=== PATIENT | female | born 1990 | race Caucasian/White ===

== ENCOUNTER 2019-06-16 11:18 | Observation (INO) | payer BC, OTHER, SELFPAY ==
[2019-06-16 11:21] VITALS: BP 158/115; PULSE 108; RESP 18; TEMP 36.8; O2SAT 99; BMI 54.9
--- NOTE | 2019-06-16 11:25 | ED_ITS ---
HPI - Skin/Abscess/Foreign Bdy General: Chief complaint: Skin/Abscess/Foreign Body Stated complaint: Abscess Time Seen by Provider: 06/16/19 11:22 History of Present Illness: HPI narrative: Patient sent by PCP for evaluation of abscess with cellulitis to bridge of nose. Had been lanced x 2 with needle decompression, no abscess to I&D identified today. No fever. Patient states she noticed a bump months ago but it became inflamed roughly 3-4 days ago. She l anced it with a lot of pus that came out, saw provider 2 days ago, lanced again, smaller amount returned, nothing to yady today. Here for CT after going to pcp today and concern for intracranial extension arose due to firmness at left medial canthus and worsening redness despite strict compliance and close follow up. 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 No neurologic deficits or visual changes. SHe has taken 3 doses of Bactrim so far. CO headache but no menigneal signs, no evidence of intracranial or cerebral abscess formation. Will obtain CT faical for evaluation of abscess depth and determination of admission here or need for transfer.. complaint: rash and abscess/boil Onset (ago): day(s) (4) Tetanus up to date: yes Location: face Severity: moderate Severity scale (1-10): 6 Quality: dull Pain Consistency: constant Relieving factors: none Exacerbating factors: none Associated symptoms: Deny chills, fever(s), nausea or vomiting Treatments prior to arrival: antibiotic (bactrim ds started yesterday 3 doses total) Review of Systems Const: Denies: fever, chills, change in appetite or malaise Eyes: Denies: change in vision, blurry vision, eye discharge or eye redness ENMT: Denies: throat pain, uvular edema, painful swallowing, mouth pain, dental pain, nasal congestion or facial/sinus pain Card: Denies: chest pain, irregular heart rhythm, swelling of feet/ankles, shortness of breath on exertion, shortness of breath when lying down or leg pain with exertion Resp: Denies: shortness of breath, productive cough, wheezing or coughing up blood GI: Denies: abdominal pain, nausea, vomiting, diarrhea, constipation or fecal incontinence : Denies: flank pain, difficulty urinating, painful urination, urinary sandi quency, urinary urgency or urinary hesitancy Musc: Denies: neck pain, back pain, extremity pain or extremity swelling Skin/Breast: Denies: itching, yellow skin or dry skin Neuro: Denies: numbness in extremities, weakness in extremities, changes in sensation, lack of coordination or difficulty walking Psych: Denies: anxiety, depression, mood swings, panic attacks, sleeping less, suicidal ideation or homicidal ideation Endo: Denies: excessive urination, excessive thirst or tired all the time Willis/Lymph: Denies: easy bruising, petechiae or enlarged lymph nodes All/Imm: Denies: hives, throat swelling, facial swelling, acute wheezing or seasonal allergies PFSH ED PFSH: Statuses (acute, chronic, etc) shown below reflect problem list status as previously entered and may not be historically accurate Social History Smoking and tobacco status: current every day smoker Physical Exam Const: COMMON NORMALS: no apparent distress, oriented x3, no limitations, healthy appearing, alert and well nourished GENERAL APPEARANCE: cooperative, comfortable, well kempt and well developed ORIENTATION/CONSCIOUSNESS: Yes awake, Yes oriented to person, Yes oriented to place and Yes oriented to time HENMT: COMMON NORMALS: normocephalic, head/scalp atraumatic, hearing grossly normal bilaterally, external ears normal, EAC's normal, TM's normal bilaterally, external nose normal ( pimple to bridge of nose with surrounding edema and erythema, no fluctuan), nasal mucous membranes and turbinates normal, moist oral mucous membranes, oropharynx normal, dentition normal and gingiva normal HEAD & SCALP: normal to inspection, normocephalic and atraumatic FACE & SINUS: facial edema (forehead and bilateral eyes) and facial tenderness (bridge of nose, medial canthus left eye) NOSE: external nose normal ( pimple to bridge of nose with surrounding edema and erythema, no fluctuan) and nasal mucous membranes and turbinates normal EXTERNAL EAR: Yes external ears normal EXTERNAL AUDITORY CANAL: EAC's normal TYMPANIC MEMBRANE: TM's normal bilaterally MOUTH: oral and palatal mucosa normal, lip normal and tongue normal THROAT: no uvular edema Eye: COMMON NORMALS: PERRL, EOMs intact bilaterally, conjunctivae normal, no scleral icterus and normal visual piedra by confrontation GENERAL EYE: normal appearance of both eyes and normal light reflex VISUAL ACUITY: Yes acuity normal ALIGNMENT: Yes alignment normal PERIORBITAL: periorbital findings normal EYELID: eyelid abnormal (swelling, erythema) right upper eyelid and left upper eyelid CONJUNCTIVA: Yes conjunctivae normal SCLERA: sclerae normal PUPIL: Yes PERRL and Yes accommodation reflex normal DIRECT OPHTHALMOSCOPY: Yes normal light reflex Neck/C-Spine: COMMON NORMALS: full ROM, no lymphadenopathy, supple, no meningeal signs and no JVD GENERAL: Yes normal visual inspection CAROTIDS: Yes normal carotid upstroke CERVICAL SPINE: Yes cervical ROM normal Lymph: LYMPHATIC: no lymphadenopathy noted Chest: COMMONS NORMALS: inspection of chest normal CHEST: Yes symmetrical chest wall rise Resp: COMMON NORMALS: normal respiratory effort, no retractions, no use of accessory muscles and clear to auscultation bilaterally EFFORT & INSPECTION: Yes able to speak in complete sentences and Yes symmetric chest movement AUSCULTATION: clear to auscultation bilaterally Cardio: COMMON NORMALS: no JVD, regular rate, regular rhythm, S1 normal heart sound, S2 normal heart sound, no murmurs and peripheral pulses 2+ throughout RATE: regular rate RHYTHM: regular rhythm HEART SOUNDS: S1 normal and S2 normal PERIPHERAL PULSES: pulses 2+ throughout GI: COMMON NORMALS: normal to inspection, nondistended, normoactive bowel sounds and non-tender : COMMON NORMALS: Yes no CVA tenderness BLADDER/KIDNEY EXAM: Yes no CVA tenderness Back/Pelvis: COMMON NORMALS: no CVA tenderness, thoracic and lumbar spine normal to inspection, no thoracic nor lumbar tenderness and thoraco-lumbar ROM normal Extremity: COMMON NORMALS: normal to inspection, full ROM, normal capillary refill, no calf tenderness and no pedal edema Neuro: COMMON NORMALS: oriented x3, CN's II-XII intact bilaterally, moves all extremities, no focal motor deficits, no sensory deficits noted and gait normal SENSORIUM/ORIENTATION: Yes alert, Yes oriented to person, Yes oriented to place and Yes oriented to time MENINGEAL SIGNS: Yes no meningeal signs SPEECH: speech normal GAIT: Yes normal gait MOTOR EXAM: strength 5/5 throughout, no pronator drift and no tremor noted Psych: COMMON NORMALS: mental status grossly normal, thought process normal, cooperative, affect normal, speech normal and activity/motor behavior normal APPEARANCE: Yes well kempt SPEECH: Yes normal speech THOUGHT PROCESS: normal thought process THOUGHT CONTENT: Yes normal thought content INSIGHT: insight good Skin: COMMON NORMALS: no rashes or lesions noted, no wounds, skin turgor normal and no jaundice GENERAL SKIN EXAM: no rashes or lesions noted and turgor normal Course ED course: patient sent here by PCP who has started her on Bactrim to rule out intracranial abscess. CT negative for worsening intracranial or deep tissue lesion. Discussed with Dr Duval who agrees to admit for inpatient IV antibiotic therapy Vital Signs: Vital signs: Vital Signs Temperature 98.3 F 06/16/19 11:21 Pulse Rate 112 H 06/16/19 11:26 Respiratory Rate 18 06/16/19 11:26 Blood Pressure 158/115 06/16/19 11:21 Pulse Oximetry 98 06/16/19 11:26 MDM - Skin/Abscess/Foreign Bdy Differential Diagnosis: Skin/Abscess Differential Diagnosis: Likely abscess of skin or subcutaneous tissue, cellulitis and insect bites Discharge Plan Discharge Patient Disposition: Admitted As Inpatient Clinical Impression: Abscess of skin or subcutaneous tissue Qualifiers: Site of cutaneous abscess: face Qualified Code(s): L02.01 - Cutaneous abscess of face Cellulitis Qualifiers: Site of cellulitis: face Qualified Code(s): L03.211 - Cellulitis of face Condition: Stable Coding Level of Care Code ED Care Transitions Manager for Lydia Noyola Exam Problem Focused
[2019-06-16 11:26] VITALS: PULSE 112; RESP 18; O2SAT 98
--- NOTE | 2019-06-16 11:32 | CT_ITS ---
WS: [id number] CT scan of the maxillofacial region. Additional two-dimensional coronal and sagittal reconstruction w as performed. 06/16/2019 Clinical Data: periorbital abscess Comparison: None. DLP: 743.[address] scans at [facility] use at least one of these dose optimization techniques: automat ed exposure control; mA and/or kV adjustment per patient size (includes targeted exams where dose is matched to clinical indication); or iterative reconstruction. Findings: The facial bones and nasal bones are unremarkable. No bone destruction or erosion is seen. The paranasal sinuses show no mucoperiosteal thickening or air-fluid levels. The orbits and orbital contents are normal. No periorbital or intraorbital abscess is seen. The masto id air cells, internal auditory canals, and sella turcica are not remarkable. The carotid arteries show normal enhancement and divide normally into the internal and external carot id arteries. The intracerebral circulation is partly seen and no aneurysms or abnormalities. The temporal mandibular joints appear to be normal. The zygomatic arches and nasal bones are normal. The floor the mouth and parapharyngeal regions demonstrate no abnormalities. The salivary glands appe ar to be normal. CT/CT facial bones w con [id number] Impression: Negative CT scan of the maxilla facial region.
--- NOTE | 2019-06-16 12:02 | PC.NURSE ---
Redness noted to the center and the left side of the upper portion of her face with c/o itching.
[2019-06-16] MEDS: iohexol 300 mg/mL 100 mL Btl IV (12:57)
[2019-06-16] MEDS: clindamycin 900 MG/50 ML PREMIX 100 MG IV (13:37)
[2019-06-16] MEDS: fentaNYL 50 mcg/mL INJ 2mL IVP (13:37)
[2019-06-16] MEDS: sodium chloride 0.9% 1,000 ML 999 ML IV (13:37)
[2019-06-16 14:00] VITALS: PULSE 75; RESP 16; O2SAT 99
[2019-06-16] MEDS: ketorolac 30 mg/mL INJ IVP ×2 (15:28→21:46)
--- NOTE | 2019-06-16 16:32 | P.HP_ITS ---
Providers/Chief Complaint Admitting Physician: Lashonda Duval DO Primary Care Provider: Patrick Evans DO Chief Complaint: Abscess History of Present Illness Lakeisha Chu is a 28 year old female that presented to the emergency department today for facial swelling and redness. She reported that the facial swelling started in the center of her forehead before Adelita, she stated that 3 days ago it became firm and painful to the touch and appeared similar to boils that she has had in the past. She stated that she tried to drain this area on her own at home and had a large amount of pus that she was able to express. She reported that 2 days ago she went to her primary care provider due to having increasing redness and was given a prescription for Bactrim, had more purulent material drained at that time. Return to the providers office today due to worsening swelling and was then sent to the ER for further evaluation. She denies any fevers or chills at home. She reports over the past couple of weeks she has been sick off and on with bronchitis and flulike symptoms that have now all resolved prior to this event. She reports taking a total of 3 doses of the Bactrim that she was prescribed. Patient was seen and evaluated in the emergency department due to concern for facial cellulitis she was admitted for further evaluation and treatment. She was given IV clindamycin in the emergency department, patient reports that her symptoms have improved since this morning. Review of Systems Const: Denies: fever or chills Eyes: Denies: change in vision ENMT: Reports: facial/sinus pain (Reports facial pain, no sinus drainage or tenderness); Denies: painful swallowing, dental pain or nasal congestion Card: Denies: chest pain, palpitations or edema Resp: Denies: shortness of breath, productive cough or coughing up blood GI: Denies: abdominal pain, nausea, vomiting, diarrhea, constipation or blood in stool : Denies: painful urination or blood in urine Musc: Denies: extremity pain or muscle cramps Skin/Breast: Reports: redness (Over the eyes and forehead) and sores (Forehead) Neuro: Denies: headache or dizziness Psych: Denies: anxiety or depression Endo: Denies: excessive urination or hot flashes Willis/Lymph: Denies: easy bruising or easy bleeding Medications/Allergies Home Medications Medication Instructions Recorded Confirmed Last Taken Type Lactobacillus acidophilus 10 mg PO DAILY 06/16/19 06/16/19 06/16/19 History [Acidophilus] cetirizine 10 mg PO DAILY 06/16/19 06/16/19 06/16/19 History drospirenone-ethinyl estradiol 1 tab PO DAILY 06/16/19 06/16/19 06/16/19 History [ZAINAB (28)] fluoxetine 20 mg PO DAILY 06/16/19 06/16/19 06/16/19 History montelukast 10 mg PO DAILY 06/16/19 06/16/19 06/16/19 History mupirocin 1 applic TOPICAL TID 06/16/19 06/16/19 06/16/19 History omeprazole 20 mg PO DAILY 06/16/19 06/16/19 06/16/19 History sulfamethoxazole-trimethoprim 2 tab PO BID 06/16/19 06/16/19 06/16/19 History [Bactrim DS] Allergies Allergy/AdvReac Type Severity Reaction Status Date / Time No Known Allergies Allergy Verified 06/16/19 11:26 PFSH Acute PFSH: Statuses (acute, chronic, etc) shown below reflect problem list status as previously entered and may not be historically accurate Medical History (Updated 06/16/19 @ 16:38 by Lashonda Duval DO) History of hidradenitis suppurativa (Acute) Seasonal allergies (Acute) Surgical History (Updated 06/16/19 @ 16:38 by Lashonda Duval DO) History of tonsillectomy (Acute) Family History (Updated 06/16/19 @ 16:42 by Lashonda Duval DO) Mother Hypertension Cancer History of cervical cancer Father Hypertension Grandfather Cancer Maternal grandfather, colon cancer Grandfather Bone marrow disease Paternal grandfather, history of unknown bone marrow disorder Social History (Updated 06/16/19 @ 16:42 by Lashonda Duval DO) Smoking and tobacco status: current every day smoker Alcohol intake: never Substance/Drug Use: never Female Reporductive History: Date of last menstrual period: 06/16/19 Vitals/I&O/Wt Last Vital Signs Temp 98.3 F 06/16/19 11:21 Pulse 75 06/16/19 14:00 Resp 16 06/16/19 14:00 BP 158/115 06/16/19 11:21 Pulse Ox 99 06/16/19 14:00 06/16/19 06/16/19 06/16/19 06:59 14:59 22:59 Intake Total 50 / 50 1000 / 1050 Balance 50 / 50 1000 / 1050 Weight last 48 hrs Weight 149.685 kg Physical Exam Const: COMMON NORMALS: oriented x3 and alert GENERAL APPEARANCE: cooperative ORIENTATION/CONSCIOUSNESS: Yes awake, Yes oriented to person, Yes oriented to place and Yes oriented to time HENMT: COMMON NORMALS: normocephalic, external ears normal, EAC's normal, TM's normal bilaterally, external nose normal, nasal mucous membranes and turbinates normal, moist oral mucous membranes and oropharynx normal HEAD & SCALP: other (Small area over the center of the forehead status post I&D, no palpable abscess or drainage. Patient has erythema surrounding this area and over the left eye) FACE & SINUS: sinuses nontender NOSE: external nose normal (piercing on the R nostril), nares normal and no nasal discharge MOUTH: oral and palatal mucosa normal and tongue normal THROAT: posterior oropharynx normal Eye: COMMON NORMALS: PERRL and EOMs intact bilaterally PUPIL: Yes PERRL Neck/C-Spine: COMMON NORMALS: no lymphadenopathy and supple GENERAL: Yes normal visual inspection Resp: COMMON NORMALS: normal respiratory effort and clear to auscultation bilaterally EFFORT & INSPECTION: Yes able to speak in complete sentences AUSCULTATION: clear to auscultation bilaterally, no rhonchi and no wheezes Cardio: COMMON NORMALS: regular rate, regular rhythm and no murmurs RATE: regular rate RHYTHM: regular rhythm GI: COMMON NORMALS: soft to palpation and non-tender INSPECTION: No abdominal distension AUSCULTATION: Yes normoactive bowel sounds PALPATION: Yes soft Extremity: COMMON NORMALS: no clubbing, cyanosis or edema and no calf tenderness Neuro: COMMON NORMALS: oriented x3, CN's II-XII intact bilaterally, moves all extremities and no focal motor deficits SENSORIUM/ORIENTATION: Yes alert, Yes oriented to person, Yes oriented to place and Yes oriented to time SPEECH: speech normal Psych: COMMON NORMALS: mental status grossly normal and cooperative Skin: COMMON NORMALS: no rashes or lesions noted GENERAL SKIN EXAM: no rashes or lesions noted Data Other CT: Radiologist's impression: Face CT: The facial bones and nasal bones are unremarkable. No bone destruction or erosion is seen. The paranasal sinuses show no mucoperiosteal thickening or air-fluid levels. The orbits and orbital contents are normal. No periorbital or intraorbital abscess is seen. The mastoid air cells, internal auditory canals, and sella turcica are not remarkable. The carotid arteries show normal enhancement and divide normally into the internal and external carotid arteries. The intracerebral circulation is partly seen and no aneurysms or abnormalities. The temporal mandibular joints appear to be normal. The zygomatic arches and nasal bones are normal. The floor the mouth and parapharyngeal regions demonstrate no abnormalities. The salivary glands appear to be normal. A&P Assessment and plan (1) Cellulitis: Facial cellulitis with recent incision and drainage of abscess in the forehead. Had been on Bactrim DS, 2 tabs twice daily in the outpatient setting, had taken 3 total doses with minimal improvement therefore was sent to the ER for further evaluation. Had CT scan as noted above which did not show any evidence of periorbital cellulitis, no identifiable abscess. Extraocular muscles intact, vision within normal limits, no appreciable sinus tenderness or concern for acute sinusitis. Given IV clindamycin in the ED, will continue at this time and discontinue Bactrim. Observation placement at this time Status: Acute Qualifiers: Site of cellulitis: face Qualified Code(s): L03.211 - Cellulitis of face Code(s): L03.90 - Cellulitis, unspecified (2) Abscess of skin or subcutaneous tissue: Abscess of the forehead status post I&D 3 days ago, no identifiable abscess at this time Status: Acute Qualifiers: Site of cutaneous abscess: face Qualified Code(s): L02.01 - Cutaneous abscess of face Code(s): L02.91 - Cutaneous abscess, unspecified Additional A&P Information Tobacco abuse: Strongly encourage cessation Diet: Regular diet DVT prophylaxis: Ambulation, low risk CODE STATUS: Full code Attestations Medical Necessity Statement*: Observation for facial cellulitis, expected stay less than 2 midnights Coding Level of Care Code 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
[2019-06-16 17:14] VITALS: BP 149/85; PULSE 102; RESP 16; O2SAT 98
[2019-06-16 17:59] VITALS: BP 149/84; PULSE 88; RESP 18; TEMP 36.8; O2SAT 97
[2019-06-16] MEDS: acetaminophen 325 mg Tablet 650 MG PO (19:42)
[2019-06-16 21:00] VITALS: BP 131/71; PULSE 84; RESP 19; TEMP 36.8
[2019-06-16] MEDS: clindamycin 600 MG/50 ML PREMIX 100 MG IV (21:45)
[2019-06-16] MEDS: mupirocin oint 22 gm 1 APPLIC TOPICAL (21:45)
[2019-06-17] VITALS: BP 104/67; PULSE 97; RESP 18; TEMP 36.9; O2SAT 98
[2019-06-17 05:29] VITALS: BP 136/74; PULSE 66; RESP 17; TEMP 36.6; O2SAT 98
[2019-06-17 06:00] VITALS: BMI 60.9
[2019-06-17 06:03] LABS: Basophils % 0.5 %; Eosinophils # 0.3 10^3/uL (0.0-0.8); Eosinophils % 2.9 %; Hematocrit 36.6 % (37.0-47.0); Hemoglobin 11.4 g/dL (11.5-15.3); Lymphocytes # 3.4 10^3/uL (0.8-4.8); Lymphocytes % 38.7 %; Mean Corpuscular HGB Conc 31.1 g/dL (30.0-36.0); Mean Corpuscular Hemoglobin 25.9 pg (28.0-34.0); Mean Corpuscular Volume 83.2 fL (81-99); Mean Platelet Volume 9.3 fL (7.4-10.4); Monocytes # 0.6 10^3/uL (0.2-0.9); Monocytes % 7.1 %; Neutrophils # 4.4 10^3/uL (1.8-7.7); Neutrophils % 49.9 %; Nucleated Red Blood Cells % 0 %; Platelet Count 286 10^3/cmm (130-400); Red Cell Distribution Width 13.1 % (12.1-15.1); White Blood Count 8.8 10^3/uL (4.0-10.0)
[2019-06-17] MEDS: ketorolac 30 mg/mL INJ IVP (06:27)
[2019-06-17] MEDS: clindamycin 600 MG/50 ML PREMIX 100 MG IV (06:27)
[2019-06-17 08:00] VITALS: BP 134/80; PULSE 76; RESP 18; TEMP 36.5; O2SAT 98
[2019-06-17] MEDS: pantoprazole DR 40 mg Tablet PO (08:21)
--- NOTE | 2019-06-17 09:40 | P.DS_ITS ---
Discharge Providers Date of Admission: 06/16/19 16:31 Date of Discharge: 06/17/19 Attending Provider at Admission: Lashonda Duval MD Attending Provider at Discharge: Benigno Rincon Primary Care Provider: Patrick Evans DO Diagnoses at Discharge Discharge Diagnosis (1) Cellulitis: Status: Acute Qualifiers: Site of cellulitis: face Qualified Code(s): L03.211 - Cellulitis of face (2) Abscess of skin or subcutaneous tissue: Status: Acute Qualifiers: Site of cutaneous abscess: face Qualified Code(s): L02.01 - Cutaneous abscess of face Reason for Visit Reason for Visit: Reason For Visit: Abscess Hospital Course Hospital Course: 28-year-old lady with history of hidradenitis suppurativa, seasonal allergies was placed in observation after persistent cellulitis of the glabella after drainage of abscess in the same area 3 days ago, and with lack of improvement after starting Bactrim prescribed by her primary care provider [address] without sign of any residual abscess, no periorbital or intraorbital abscess. She was started on IV clindamycin. This morning noting improvement in symptoms, still having some discomfort, but without severe pain, no drainage, and denies any chills. She has been afebrile, without leukocytosis, tachycardia or other signs of sepsis. Since she has been improving she is discharged on 10 days of oral clindamycin 450 mg 4 times daily with follow-up with her primary care provider in office. Physical Exam Const: COMMON NORMALS: no apparent distress and oriented x3 NUTRITIONAL APPEARANCE: overweight HENMT: COMMON NORMALS: oropharynx normal FACE & SINUS: facial erythema (She reports chronically reddish/blotchy complexion. On exam of the glabella there is only mild erythema, with a noted dimple at the site of prior abscess, without any drainage.) Neck/C-Spine: COMMON NORMALS: no JVD Resp: COMMON NORMALS: normal respiratory effort and clear to auscultation bilaterally AUSCULTATION: clear to auscultation bilaterally Cardio: COMMON NORMALS: no JVD, regular rhythm, S1 normal heart sound, S2 normal heart sound and no murmurs RHYTHM: regular rhythm HEART SOUNDS: S1 normal and S2 normal GI: COMMON NORMALS: normal to inspection, nondistended, normoactive bowel sounds, soft to palpation and non-tender PALPATION: Yes soft Extremity: COMMON NORMALS: no joint enlargement and no pedal edema Neuro: COMMON NORMALS: oriented x3 and moves all extremities Skin: COMMON NORMALS: no rashes or lesions noted GENERAL SKIN EXAM: no rashes or lesions noted Discharge Data Data Completed and Pending: Completed Studies During Hospitalization Category Date Time Status CT facial bones w con [id number] Stat Cat Scan 06/16/19 11:32 Completed Labs from last 24 hours 06/17/19 05:54 WBC 8.8 RBC 4.40 Hgb 11.4 L Hct 36.6 L MCV 83.2 MCH 25.9 L MCHC 31.1 RDW 13.1 Plt Count 286 MPV 9.3 Neut % (Auto) 49.9 Lymph % (Auto) 38.7 [place] % (Auto) 7.1 Eos % (Auto) 2.9 Baso % (Auto) 0.5 Neut # (Auto) 4.4 Lymph # (Auto) 3.4 [place] # (Auto) 0.6 Eos # (Auto) 0.3 Baso # (Auto) 0.0 Nucleated RBC % (a uto) 0 Nucleated RBCs # 0.0 Vitals: Last Vital Signs Temp 97.7 F 06/17/19 08:00 Pulse 76 06/17/19 08:00 Resp 18 06/17/19 08:00 BP 134/80 06/17/19 08:00 Pulse Ox 98 06/17/19 08:00 Discharge Plan Discharge Patient Disposition: Home, Self-Care Condition: Stable Prescriptions: New [id number] [Fioricet] 50-300-40 mg capsule 1 cap PO Q8H PRN (Reason: pain) Qty: 1 RF: 0 clindamycin HCl 150 mg capsule 150 mg PO Q6H 10 Days Qty: 40 RF: 0 naproxen sodium [Anaprox DS] 550 mg tablet 550 mg PO BID PRN (Reason: pain) Qty: 14 RF: 0 clindamycin HCl 300 mg capsule 300 mg PO Q6H 10 Days Qty: 40 RF: 0 Continued cetirizine 10 mg Tablet 10 mg PO DAILY RF: 0 omeprazole 20 mg Capsule,Delayed Release(Dr/Ec) 20 mg PO DAILY RF: 0 montelukast 10 mg Tablet 10 mg PO DAILY RF: 0 mupirocin 2 % Ointment 1 applic TOPICAL TID RF: 0 Acidophilus Capsule 10 mg PO DAILY RF: 0 fluoxetine 20 mg Capsule 20 mg PO DAILY RF: 0 ZAINAB (28) 3-0.02 mg Tablet 1 tab PO DAILY RF: 0 Discontinued Bactrim DS 800-160 mg Tablet 2 tab PO BID RF: 0 Discharge Orders: Discharge Order (Routine); Ordered 06/17/19 Ordered By: Benigno Rincon Referrals: Patrick Evans DO [Primary Care Provider] - 4-7 days Patient Instructions: Periorbital Cellulitis Activity Restrictions/Additional Instructions: If you experience worsening erythema again, swelling, pain, return of drainage, high fever, or other abnormal symptoms please seek medical attention without de lay. 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
[2019-06-17 10:14] VITALS: BP 134/80; PULSE 76; RESP 18; TEMP 36.5; O2SAT 98
--- NOTE | 2019-06-17 10:53 | PC.NURSE ---
Discharge Summary Patient was discharged home with self care. vital signs within normal limits. Iv discontinued. prescriptions sent to her preferred pharmacy. discharge instructions gone over with patient and verbalized understanding. follow up appointments scheduled.
== END 2019-06-17 10:50 | disposition home or self-care (01) ==
LOC: ER 15:19 → MEDSURG 17:12
PROVIDERS: Admitting Provider Family Medicine; Emergency Provider Emergency Medicine; Family Provider Family Medicine; PCP Family Medicine; Visit Provider Internal Medicine
DX: L02.91 Cutaneous abscess, unspecified (principal); L03.211 Cellulitis of face; Z82.49 Family history of ischemic heart disease and other diseases of the circulatory system
CPT/HCPCS: 12345; 36415; 70487; 85025; 96365; 96374; 96375; 99282; 99285; G0378; J1885; J3010; J3490; J7030; Q9967

== ENCOUNTER 2021-02-14 15:21 | Emergency (ER) | payer SELFPAY ==
[2021-02-14] VITALS (12 sets, daily range): BP systolic 110–136; BP diastolic 54–83; PULSE 67; RESP 16–24; TEMP 36.7; O2SAT 95–100; BMI 38.2
--- NOTE | 2021-02-14 15:43 | W.ED.ABDPA2 ---
HPI - Abdominal Pain General: Chief Complaint: Abdominal Pain Stated Complaint: CHEST PAIN/TROUBLE BREATHING Time Seen by Provider: 02/14/21 15:43 History of Present Illness: HPI narrative: Ms. Chu is a 30-year-old lady with significant surgical history of gastric bypass who presents emergency department due to epigastric abdominal pain. Symptom onset was subacute approximately 2 to 3 hours ago. There was mild associated nausea but no vomiting. The symptoms started without specific provoking factor. She describes sharp radiation through to the back. Mild associated shortness of breath just due to abdominal discomfort. No previous infectious symptoms. Overall the course of symptoms has remained about the same. The intensity is moderate to severe. Her symptoms are worse with movement but do not go with rest. No other specific exacerbating or relieving factors identified. She is currently on her menstrual period and has a female partner who is in the room with her. Related Data: Date of Last Menstrual Period: 06/16/19 Review of Systems General: Reports: 10 or more systems reviewed and unremarkable except in HPI and below PFSH ED PFSH: Medical History History of hidradenitis suppurativa Seasonal allergies Surgical History History of tonsillectomy Family History Mother Hypertension Cancer History of cervical cancer Father Hypertension Grandfather Cancer Maternal grandfather, colon cancer Grandfather Bone marrow disease Paternal grandfather, history of unknown bone marrow disorder Social History Smoking and tobacco status: current every day smoker Alcohol intake: never Female Reproductive History: Date of last menstrual period: 06/16/19 Physical Exam Narrative: EXAM NARRATIVE: GENERAL/CONSTITUTIONAL - well-appearing. No acute distress. Mildly uncomfortable due to pain Eyes - PERRL, no conjunctival injection ENMT - Atraumatic external nose and ears. Moist mucous membranes NECK - supple. trachea midline CARDIOVASCULAR - regular rate and rhythm. Peripheral pulses 2+ and equal RESPIRATORY -clear to auscultation bilaterally. No retractions or accessory muscle use. ABDOMEN/GI - tenderness palpation in the epigastric region. Nondistended. No tenderness to percussion or evidence of peritonitis MSK - Extremities without obvious deformity or tenderness to palpation SKIN - Warm, Dry NEURO - alert and appropriately oriented. strength and sensation intact. Moves all extremities equally. PSYCH - Appropriate mood and affect Course ED course: - Patient was seen and evaluated by me at bedside - Patient placed on cardiac monitors, IV access obtained - Initial evaluation notable for no acute distress, nontoxic appearance. Discomfort due to pain. Abdominal exam as noted above -Symptom treatment ordered - Labs notable for leukocytosis, mild elevated AST on metabolic panel. Patient denies history of alcohol use/abuse. Urinalysis not concerning for urinary tract infection given squamous epithelial contamination. - Imaging notable for no acute finding to explain the patient's symptoms - Upon serial reexamination after treatment the patient was improved with resolution of pain - Based on patient history, evaluation, labs, and imaging as interpreted the most likely cause of the patient's condition is unclear - The results of ED evaluation were discussed with the patient including prescriptions and/or symptomatic cares (if applicable) including appropriate and responsible use, followup plan, and return precautions. The patient verbalized understanding and felt safe for discharge. - Patient discharged in satisfactory condition. Vital Signs: Vital signs: Vital Signs Temperature 98.1 F 02/14/21 15:36 Pulse Rate 67 02/14/21 15:36 Respiratory Rate 16 02/14/21 17:18 Blood Pressure 110/55 02/14/21 18:00 Pulse Oximetry 99 02/14/21 18:00 MDM - Abdominal Pain Medical Records: Attestation: I reviewed the patient's medical records. Lab Data: Attestation: I reviewed the patient's lab results. Labs: Lab Results 02/14/21 02/14/21 02/14/21 Range/Units 16:15 16:15 16:15 WBC 14.7 H (4.0-10.0) 10^3/ uL RBC 4.78 (4.1-5.3) 10^6/u L Hgb 13.1 (11.5-15.3) g/dL Hct 40.7 (37.0-47.0) % MCV 85.1 (81-99) fl MCH 27.4 L (28.0-34.0) pg MCHC 32.2 (30.0-36.0) g/dL RDW 12.7 (12.1-15.1) % Plt Count 289 (130-400) 10^3/c mm MPV 9.8 (7.4-10.4) fL Neut % (Auto) 84.4 % Lymph % (Auto) 10.1 % Lea % (Auto) 4.8 % Eos % (Auto) 0.1 % Baso % (Auto) 0.3 % Neut # (Auto) 12.42 H (1.8-7.7) 10^3/u L Lymph # (Auto) 1.5 (0.8-4.8) 10^3/u L Lea # (Auto) 0.7 (0.2-0.9) 10^3/u L Eos # (Auto) 0.0 (0.0-0.8) 10^3/u L Baso # (Auto) 0.0 (0.0-0.1) 10^3/u L Nucleated RBC % (a uto) 0 % Nucleated RBCs # 0.0 /100WBC Sodium 139 (136-145) mmol/L Potassium 4.2 (3.5-5.1) mmol/L Chloride 104 (98-107) mmol/L Carbon Dioxide 21 L (22-29) mmol/L Anion Gap 18.2 (5-19) BUN 11 (6-20) mg/dL Creatinine 0.7 (0.5-0.9) mg/dL GFR Calculation 98.3 (90-130) mL/min Glucose 108 (65-115) mg/dL Calculated Osmolal ity 288 (285-295) mOsm/k g Calcium 9.0 (8.5-10.5) mg/dL Total Bilirubin 0.4 (0.15-1.2) mg/dL AST 72 H (0-32) U/L ALT 28 (0-33) U/L Alkaline Phosphata se 116 H (35-105) IU/L Troponin T Baselin e 6 (0-10) ng/L Troponin T 120 Min mary[place] ig[place] (0-10) ng/L Delta Troponin T (0-10) ABS# Total Protein 6.4 L (6.6-8.7) g/dL Albumin 4.0 (3.5-5.2) g/dL Globulin 2.4 (1.3-4.6) g/dL Lipase 22 (13-60) U/L Urine Color (Yellow) Urine Appearance (CLEAR) Urine pH (5-7) Ur Specific Gravit y (1.005-1.030) Urine Protein (Negative) Urine Glucose (UA) (Normal) Urine Ketones (Negative) Urine Blood (Negative) Urine Nitrate (Negative) Urine Bilirubin (Negative) Urine Urobilinogen (Negative) mg/dL Ur Leukocyte Aura ase (Negative) Urine RBC (0-2) /hpf Urine WBC (0-5) /hpf Ur Squamous Epith Cells (0-5) /hpf Amorphous Sediment Urine Bacteria (NONE) /hpf Urine Mucus /hpf 02/14/21 02/14/21 Range/Units 16:30 17:55 WBC (4.0-10.0) 10^3/ uL RBC (4.1-5.3) 10^6/u L Hgb (11.5-15.3) g/dL Hct (37.0-47.0) % MCV (81-99) fl MCH (28.0-34.0) pg MCHC (30.0-36.0) g/dL RDW (12.1-15.1) % Plt Count (130-400) 10^3/c mm MPV (7.4-10.4) fL Neut % (Auto) % Lymph % (Auto) % Lea % (Auto) % Eos % (Auto) % Baso % (Auto) % Neut # (Auto) (1.8-7.7) 10^3/u L Lymph # (Auto) (0.8-4.8) 10^3/u L Lea # (Auto) (0.2-0.9) 10^3/u L Eos # (Auto) (0.0-0.8) 10^3/u L Baso # (Auto) (0.0-0.1) 10^3/u L Nucleated RBC % (a uto) % Nucleated RBCs # /100WBC Sodium (136-145) mmol/L Potassium (3.5-5.1) mmol/L Chloride (98-107) mmol/L Carbon Dioxide (22-29) mmol/L Anion Gap (5-19) BUN (6-20) mg/dL Creatinine (0.5-0.9) mg/dL GFR Calculation (90-130) mL/min Glucose (65-115) mg/dL Calculated Osmolal ity (285-295) mOsm/k g Calcium (8.5-10.5) mg/dL Total Bilirubin (0.15-1.2) mg/dL AST (0-32) U/L ALT (0-33) U/L Alkaline Phosphata se (35-105) IU/L Troponin T Baselin e (0-10) ng/L Troponin T 120 Min [place]ary[place] 6.00 (0-10) ng/L Delta Troponin T 0 (0-10) ABS# Total Protein (6.6-8.7) g/dL Albumin (3.5-5.2) g/dL Globulin (1.3-4.6) g/dL Lipase (13-60) U/L Urine Color Dark yellow (Yellow) Urine Appearance Hazy A (CLEAR) Urine pH 6.5 (5-7) Ur Specific Gravit y 1.010 (1.005-1.030) Urine Protein Neg (Negative) Urine Glucose (UA) Norm (Normal) Urine Ketones 1+ H (Negative) Urine Blood 3+ H (Negative) Urine Nitrate Negative (Negative) Urine Bilirubin Neg (Negative) Urine Urobilinogen 1 H (Negative) mg/dL Ur Leukocyte Aura ase Trace H (Negative) Urine RBC 0-4 H (0-2) /hpf Urine WBC 5-10 H (0-5) /hpf Ur Squamous Epith Cells 10-15 H (0-5) /hpf Amorphous Sediment Not Reportable Urine Bacteria 1+ H (NONE) /hpf Urine Mucus 1+ /hpf EKG Data ^: EKG 1: Attestation: I personally reviewed and interpreted this EKG as follows: EKG interpretation date: 02/12/21 EKG interpretation time: 15:38 Interpretation: Twelve-lead EKG shows a regular sinus rhythm at a rate of 65. UT interval 150, QRS duration 93, QTc 417. Normal axis. Interpretation: Sinus rhythm with nonspecific ST segment abnormalities. EKG 2: Attestation: I personally reviewed and interpreted this EKG as follows: EKG interpretation date: 02/14/21 EKG interpretation time: 16:28 Interpretation: Twelve-lead EKG shows a regular sinus rhythm at a rate of 60. UT interval 157, QRS duration 93, QTc 425. Normal axis. Interpretation sinus rhythm with nonspecific ST segment abnormality similar to prior Discharge Plan Discharge Patient Disposition: Home Clinical Impression: Abdominal pain Condition: Stable Prescriptions: No Action montelukast 10 mg tablet 10 mg PO DAILY Qty: 30 RF: 5 omeprazole 20 mg capsule,delayed release(DR/EC) 20 mg PO DAILY Qty: 30 RF: 5 fluticasone propionate 50 mcg/actuation spray,suspension 1 spray INTRANASAL DAILY PRN (Reason: Nasal Congestion) RF: 0 cetirizine 10 mg Tablet 10 mg PO DAILY RF: 0 mupirocin 2 % Ointment 1 applic TOPICAL TID RF: 0 Lactobacillus acidophilus [Acidophilus] Capsule 10 mg PO DAILY PRN (Reason: on abx) RF: 0 fluoxetine 20 mg Capsule 20 mg PO DAILY RF: 0 drospirenone-ethinyl estradiol [ZAINAB (28)] 3-0.02 mg Tablet 1 tab PO DAILY RF: 0 Discharge Orders: Discharge ED (Routine); Ordered 02/14/21 Ordered By: Reinaldo Cain Referrals: Sheridan Jennings FNP [Primary Care Provider] - Discharge Diet: Advance as tolerated and Clear Liquid Discharge Activity: Resume usual activity Patient Instructions: Abdominal Pain (ED) Activity Restrictions/Additional Instructions: Thank you for visiting the ED. You were seen and evaluated for abdominal pain. The exact cause of your pain is unclear. Please followup with your primary care provider. Please return for worsening symptoms or anything that you are concerned about and feel needs ED evaluation. Coding Level of Care Code ED Talent Management Specialist for Lydia Noyola
--- NOTE | 2021-02-14 15:54 | CTR_ITS ---
PROCEDURE INFORMATION: Exam: CT Abdomen And Pelvis With Contrast Exam date and time: 02/14/2021 3:54 PM Age: 30 years old Clinical indication: Abdominal pain; Epigastric; Prior surgery; Surgery type: Gastric bypass; Additional info: Epigastric pain, HX of gastric bypass TECHNIQUE: Imaging protocol: Computed tomography of the abdomen and pelvis with contrast. Total images: 253 Radiation optimization: All CT scans at this facility use at least one of these dose optimization techniques: automated exposure control; mA and/or kV adjustment per patient size (includes targeted exams where dose is matched to clinical indication); or iterative reconstruction. Contrast material: OMNI 300; Contrast volume: 95 ml; Contrast route: INTRAVENOUS (IV); COMPARISON: CR XR chest 1V portable [id number] 02/14/2021 4:05 PM RADIATION DOSE METRICS: Total DLP (mGy-cm): 1804.42 FINDINGS: Lungs: Limited assessment of the lung bases fails to reveal evidence for active cardiopulmonary process. Liver: No visible hepatic mass or cystic structure. Hepatomegaly. Gallbladder and bile ducts: Normal. No calcified stones. No ductal dilation. Pancreas: Pancreas is unremarkable. No visible pancreatic ductal ectasia. Spleen: Spleen unremarkable. Adrenal glands: Adrenal glands unremarkable. Kidneys and ureters: No hydronephrosis or perinephric fluid. No visible nephrolithiasis. Stomach and bowel: Status post gastroplasty. Assessment of the hollow viscus fails to reveal evidence of active or acute pathology. Nonobstructed bowel pattern. No visible acute diverticulitis. No visible adynamic or reactive ileus. Appendix: The appendix is visualized and appears noninflamed. Intraperitoneal space: No visible evidence of mesenteric lymphadenitis or active mesenteritis/panniculitis. No visible pneumoperitoneum or intraperitoneal ascites. Vasculature: The abdominal aorta is nonaneurysmal. Portal vein patent. Lymph nodes: No current visible evidence of active mesenteric or retroperitoneal lymphadenopathy. Urinary bladder: Urinary bladder unremarkable. Reproductive: Unremarkable as visualized. Bones/joints: No visible active or acute osseous pathology. Soft tissues: Obesity. CT/CT abdomen pelvis w con* [id number] IMPRESSION: Currently no visible evidence for acute abdominal or pelvic pathologic process. Radiation Dose CTDIVOL = (mGy): DLP = 1804.42 (mGy-cm)
--- NOTE | 2021-02-14 15:54 | XR_ITS ---
WS: [id number] XR chest 1V portable [id number] REASON FOR EXAM: epigastric/chest pain FINDINGS: The heart and mediastinum are within normal limits. Calcified granulomatous disease in both hemithoraces. No active pulmonary parenchymal or pleural disease. Bony thorax is intact. XR/XR chest 1V portable [id number] IMPRESSION: No acute chest abnormality.
--- NOTE | 2021-02-14 15:54 | ECG_ITS ---
[facility] Test Date: 2021-02-14 Pat Name: Lakeisha Chu Department: Room: Gender: Female Press Offbearer: : 1990 Requested By: Reinaldo Cain Order Number: [id number] Stock MD: Vandana Casarez M.D. Measurements Intervals [place] Rate: 60 P: 29 IN: 157 QRS: 12 QRSD: 93 T: 18 QT: 423 QTc: 426 Interpretive Statements SINUS RHYTHM WITH SINUS ARRHYTHMIA No previous ECG available for comparison Electronically Signed On 02-15-2021 8:38:47 CDT by Vandana Casarez M.D. [email or web address]
[2021-02-14 16:25] LABS: Basophils % 0.3 %; Eosinophils % 0.1 %; Hematocrit 40.7 % (37.0-47.0); Hemoglobin 13.1 g/dL (11.5-15.3); Lymphocytes # 1.5 10^3/uL (0.8-4.8); Lymphocytes % 10.1 %; Mean Corpuscular HGB Conc 32.2 g/dL (30.0-36.0); Mean Corpuscular Hemoglobin 27.4 pg (28.0-34.0); Mean Corpuscular Volume 85.1 fl (81-99); Mean Platelet Volume 9.8 fL (7.4-10.4); Monocytes # 0.7 10^3/uL (0.2-0.9); Monocytes % 4.8 %; Neutrophils # 12.42 10^3/uL (1.8-7.7); Neutrophils % 84.4 %; Nucleated Red Blood Cells % 0 %; Platelet Count 289 10^3/cmm (130-400); Red Blood Count 4.78 10^6/uL (4.1-5.3); Red Cell Distribution Width 12.7 % (12.1-15.1); White Blood Count 14.7 10^3/uL (4.0-10.0)
[2021-02-14] MEDS: iohexol 300 mg/mL 100 mL Btl IV (16:43)
[2021-02-14 16:51] LABS: Alanine Aminotransferase 28 U/L (0-33); Alkaline Phosphatase 116 IU/L (35-105); Anion Gap 18.2 (5-19); Aspartate Amino Transferase 72 U/L (0-32); Blood Urea Nitrogen 11 mg/dL (6-20); Carbon Dioxide 21 mmol/L (22-29); Chloride 104 mmol/L (98-107); Globulin 2.4 g/dL (1.3-4.6); Glomerular Filtration Rate 98.3 mL/min (90-130); Glucose 108 mg/dL (65-115); Lipase 22 U/L (13-60); Osmolality Calculated 288 mOsm/kg (285-295); Potassium 4.2 mmol/L (3.5-5.1); Sodium 139 mmol/L (136-145); Total Bilirubin 0.4 mg/dL (0.15-1.2); Total Protein 6.4 g/dL (6.6-8.7)
[2021-02-14 16:54] LABS: Troponin(5th) Baseline 6 ng/L (0-10)
[2021-02-14 17:00] LABS: Urine Appearance Hazy (CLEAR); Urine Color Dark Yellow (Yellow); pH Urine 6.5 (5-7)
[2021-02-14 17:01] LABS: Add Urine Microscopic? YES; Bilirubin Urine Neg (Negative); Blood Urine 3+ (Negative); Glucose Urine UA Norm (Normal); Ketones Urine 1+ (Negative); Leukocyte Esterase Urine Trace (Negative); Nitrate Urine Negative (Negative); Protein Urine Neg (Negative); Urobilinogen Urine 1 mg/dL (Negative)
[2021-02-14 17:02] LABS: Add Urine Culture? No; Bacteria Urine 1+ /hpf; Mucus Urine 1+ /hpf; RBC Urine 0-4 /hpf (0-2)
[2021-02-14] MEDS: ondansetron 2 mg/ML SDV 2 mL 4 MG IVP (17:17)
[2021-02-14] MEDS: sodium chloride 0.9% 500 ML IV (17:18)
[2021-02-14] MEDS: morphine 4 mg/mL SDV 1 mL IVP (17:18)
[2021-02-14] MEDS: lidocaine 2% viscous 15 ML, aluminum-mag hydrox-simethicon 30 ML, sucralfate oral liq 1 GM PO (17:25)
[2021-02-14 18:28] LABS: Troponin 5 2HR Delta 0 ABS# (0-10)
== END 2021-02-14 18:15 | disposition home or self-care (01) ==
PROVIDERS: Emergency Provider Emergency Medicine; PCP Nurse Practitioner Family
DX: R10.9 Unspecified abdominal pain (principal); F17.210 Nicotine dependence, cigarettes, uncomplicated
CPT/HCPCS: 36415; 71045; 74177; 80053; 81001; 83690; 84484; 85025; 93005; 96361; 96374; 96375; 99284; J2270; J2405; J7040; Q9967

== ENCOUNTER → 2021-06-17 08:35 | Outpatient (BNVA) | payer OTHER, SELFPAY | PROVIDERS: PCP Nurse Practitioner Family; Visit Provider Nurse Practitioner Family | DX: Z20.822 Contact with and (suspected) exposure to COVID-19 (principal) | CPT/HCPCS: 87635 ==

== ENCOUNTER 2022-10-15 18:57 | Emergency (ER) | payer SELFPAY ==
[2022-10-15] VITALS (7 sets, daily range): BP systolic 99–142; BP diastolic 68–93; PULSE 51–97; RESP 16–22; O2SAT 96–100
--- NOTE | 2022-10-15 19:21 | USR_ITS ---
PROCEDURE INFORMATION: Exam: US Abdomen, Limited; Right Upper Quadrant Exam date and time: 10/15/2022 7:58 PM Age: 31 years old Clinical indication: Abdominal pain; Prior surgery; Surgery date: 6+ months; Surgery type: Gastric bypass 2019; Patient HX: Epigastric pain x 2 hours. ; Additional info: Ruq abd pain TECHNIQUE: Imaging protocol: Real time ultrasound of the abdomen with image documentation. Limited exam focused on the right upper quadrant. COMPARISON: CT abdomen pelvis w con* [id number] 02/14/2021 4:39 PM FINDINGS: Liver: Normal. No masses. Gallbladder: Layering shadowing sludge and gallstones noted in the gallbladder body and neck. There is no gallbladder wall thickening. Negative sonographic Post sign. Biliary ducts: Normal. No stones. No dilation. Pancreas: Visualized pancreas is unremarkable. Right kidney: The right kidney measures 10.9 cm in length. No mass. No hydronephrosis. US/US abdomen limited [id number] IMPRESSION: Cholelithiasis without sonographic findings of acute cholecystitis.
[2022-10-15 19:31] LABS: Basophils # 0.1 10^3/uL (0.0-0.1); Basophils % 0.5 %; Eosinophils # 0.1 10^3/uL (0.0-0.8); Eosinophils % 0.6 %; Hematocrit 35.1 % (37.0-47.0); Hemoglobin 10.5 g/dL (11.5-15.3); Lymphocytes % 28.9 %; Mean Corpuscular HGB Conc 29.9 g/dL (30.0-36.0); Mean Corpuscular Hemoglobin 23.4 pg (28.0-34.0); Mean Corpuscular Volume 78.2 fl (81-99); Mean Platelet Volume 9.7 fL (7.4-10.4); Monocytes # 0.6 10^3/uL (0.2-0.9); Monocytes % 5.5 %; Neutrophils # 6.68 10^3/uL (1.8-7.7); Neutrophils % 64.1 %; Nucleated Red Blood Cells % 0 %; Platelet Count 316 10^3/cmm (130-400); Red Blood Count 4.49 10^6/uL (4.1-5.3); Red Cell Distribution Width 13.9 % (12.1-15.1); White Blood Count 10.4 10^3/uL (4.0-10.0)
[2022-10-15] MEDS: ondansetron 2 mg/ML SDV 2 mL 4 MG IVP (19:35)
[2022-10-15] MEDS: morphine 4 mg/mL SDV 1 mL IVP ×2 (19:35→20:56)
[2022-10-15 20:32] LABS: Alanine Aminotransferase 25 U/L (0-33); Albumin Level 3.9 g/dL (3.5-5.2); Alkaline Phosphatase 77 U/L (35-105); Anion Gap 15.5 (5-19); Aspartate Amino Transferase 58 U/L (0-32); Blood Urea Nitrogen 12 mg/dL (6-20); Calcium 8.6 mg/dL (8.5-10.5); Carbon Dioxide 22 mmol/L (22-29); Chloride 106 mmol/L (98-107); Globulin 2.6 g/dL (1.3-4.6); Glomerular Filtration Rate 83.7 mL/min (90-130); Glucose 97 mg/dL (65-115); Lipase 41 U/L (13-60); Osmolality Calculated 288 mOsm/kg (285-295); Potassium 4.5 mmol/L (3.5-5.1); Sodium 139 mmol/L (136-145); Total Bilirubin 0.2 mg/dL (0.15-1.2); Total Protein 6.5 g/dL (6.6-8.7)
--- NOTE | 2022-10-15 20:48 | W.ED.ABDPA2 ---
HPI - Abdominal Pain General: Chief Complaint: Abdominal Pain Stated Complaint: abd pain Time Seen by Provider: 10/15/22 19:08 History of Present Illness: Patient is in today for right upper quadrant abdominal pain that started approximately 30 minutes prior to arrival. She reports that she was on her way to get engagement pictures when she started having severe stabbing right upper quadrant abdominal pain. She reports that nothing seems to make this better or worse. She states that it comes in waves and then it will resolve/less than for a little bit. She states that she has had this 1 time in the past and they suspected that it was her gallbladder. She states that last episode was approximately a year ago. She reports that the last time she ate was at 330 this evening and she ate a sandwich and some [place] fries. She states that 2 years ago she had gastric bypass and has lost 150 pounds. She denies any fever, chills. She reports nausea denies vomiting. She denies any possibility of . Associated Symptoms: Reports nausea; Denies chills, constipation, diarrhea, dysuria, fever(s) and vomiting Review of Systems Const: Denies: fever(s) or chills Card: Denies: chest pain or palpitations Resp: Denies: dyspnea, productive cough or non-productive cough GI: Reports: abdominal pain and nausea; Denies: vomiting, diarrhea or constipation : Denies: flank pain, difficulty voiding or dysuria Musc: Denies: neck pain or back pain Neuro: Denies: headache(s) PFS ED PFSH: Medical History History of hidradenitis suppurativa Seasonal allergies Surgical History History of tonsillectomy Family History Mother Hypertension Cancer History of cervical cancer Father Hypertension Grandfather Cancer Maternal grandfather, colon cancer Grandfather Bone marrow disease Paternal grandfather, history of unknown bone marrow disorder Social History Smoking and tobacco status: current every day smoker Alcohol intake: never Substance/Drug Use: never Physical Exam Const: COMMON NORMALS: patient oriented x3 and alert OTHER: On initial exam patient is in apparent pain. She is grimacing and holding her abdomen and panting to breathe through the pain. Neck/C-Spine: COMMON NORMALS: no JVD Resp: COMMON NORMALS: No use of accessory muscles and clear to auscultation bilaterally EFFORT & INSPECTION: Yes tachypneic (Panting with pain) AUSCULTATION: clear to auscultation bilaterally Cardio: COMMON NORMALS: no JVD, regular rate, regular rhythm, S1 normal heart sound present, S2 normal heart sound present and No murmurs present (Cardio) RATE: regular rate RHYTHM: regular rhythm HEART SOUNDS: S1 normal heart sound present and S2 normal heart sound present GI: COMMON NORMALS: Soft to palpation INSPECTION: Yes normal to inspection AUSCULTATION: Yes normoactive bowel sounds PALPATION: Yes Soft to palpation, Yes Tenderness to palpation present (GI) Details: RUQ and Yes Guarding due to palpation present (GI) in the RUQ Neuro: COMMON NORMALS: patient oriented x3 SENSORIUM/ORIENTATION: Yes alert Course ED course: Patient pain significantly improved after first dose of morphine was able to tolerate the ultrasound. 2044?patient reports feeling somewhat uncomfortable but states the sharp stabbing pain is resolved. We will give an additional dose of morphine with IV fluid hydration. Vital Signs: Vital signs: Vital Signs Pulse Rate 61 10/15/22 22:19 Respiratory Rate 16 10/15/22 21:51 Blood Pressure 99/68 10/15/22 22:19 Pulse Oximetry 100 10/15/22 22:19 Oxygen Delivery Me thod Room Air 10/15/22 21:51 MDM - Abdominal Pain Medical Decision Making Patient is in for acute onset right upper quadrant abdominal pain. She has a history of a gastric bypass with 150 pound weight loss over the past 2 years. She has had 1 other episode similar to this approximately 1 year ago. She denies any fever, chills. She does have nausea without vomiting. White blood cell count is minimally elevated at 10.4. Lipase is normal bilirubin, AST ALT, alkaline phos are normal. Ultrasound shows cholelithiasis without sonographic findings of acute cholecystitis. We will discharge patient home to follow-up with GI specialist outpatient. Strict return precautions given to the patient should she develop fever, have worsening pain, vomiting she should return to the ER immediately. Patient verbalizes understanding and wishes to be discharged home. I reinforced dietary modifications to help prevent biliary colic pain. Lab Data 10/15/22 19:24 10/15/22 20:00 Labs/Radiology: Radiology Impressions Abdomen Ultrasound 10/15/22 19: IMPRESSION: Cholelithiasis without sonographic findings of acute cholecystitis. Laboratory Results WBC 10.4 10^3/uL (4.0-10.0) H 10/15/22 19: RBC 4.49 10^6/uL (4.1-5.3) 10/15/22 19: Hgb 10.5 g/dL (11.5-15.3) L 10/15/22 19: Hct 35.1 % (37.0-47.0) L 10/15/22: MCV 78.2 fl (81-99) L 10/15/22 19: MCH 23.4 pg (28.0-34.0) L 10/15/22: MCHC 29.9 g/dL (30.0-36.0) L 10/15/22 19: RDW 13.9 % (12.1-15.1) 10/15/22: Plt Count 316 10^3/cmm (130-400) 10/15/22: MPV 9.7 fL (7.4-10.4) 10/15/22 19: Neut % (Auto) 64.1 % 10/15/22 19: Lymph % (Auto) 28.9 % 10/15/22: [place] % (Auto) 5.5 % 10/15/22 19: Eos % (Auto) 0.6 % 10/15/22: Baso % (Auto) 0.5 % 10/15/22: Neut # (Auto) 6.68 10^3/uL (1.8-7.7) 10/15/22: Lymph # (Auto) 3.0 10^3/uL (0.8-4.8) 10/15/22 19: [place] # (Auto) 0.6 10^3/uL (0.2-0.9) 10/15/22: Eos # (Auto) 0.1 10^3/uL (0.0-0.8) 10/15/22 19:24 Baso # (Auto) 0.1 10^3/uL (0.0-0.1) 10/15/22 19:24 Nucleated RBC % (auto) 0 % 10/15/22 19:24 Nucleated RBCs # 0.0 /100WBC 10/15/22 19:24 Sodium 139 mmol/L (136-145) 10/15/22 20:00 Potassium 4.5 mmol/L (3.5-5.1) 10/15/22 20:00 Chloride 106 mmol/L (98-107) 10/15/22 20:00 Carbon Dioxide 22 mmol/L (22-29) 10/15/22 20:00 Anion Gap 15.5 (5-19) 10/15/22 20:00 BUN 12 mg/dL (6-20) 10/15/22 20:00 Creatinine 0.8 mg/dL (0.5-0.9) 10/15/22 20:00 GFR Calculation 83.7 mL/min (90-130) L 10/15/22 20:00 Glucose 97 mg/dL (65-115) 10/15/22 20:00 Calculated Osmolality 288 mOsm/kg (285-295) 10/15/22 20:00 Calcium 8.6 mg/dL (8.5-10.5) 10/15/22 20:00 Total Bilirubin 0.2 mg/dL (0.15-1.2) 10/15/22 20:00 AST 58 U/L (0-32) H 10/15/22 20:00 ALT 25 U/L (0-33) 10/15/22 20:00 Alkaline Phosphatase 77 U/L (35-105) 10/15/22 20:00 Total Protein 6.5 g/dL (6.6-8.7) L 10/15/22 20:00 Albumin 3.9 g/dL (3.5-5.2) 10/15/22 20:00 Globulin 2.6 g/dL (1.3-4.6) 10/15/22 20:00 Lipase 41 U/L (13-60) 10/15/22 20:00 Discharge Plan Discharge Patient Disposition: Home Clinical Impression: Cholelithiasis, Biliary colic symptom Condition: Stable Prescriptions: No Action montelukast 10 mg tablet 10 mg PO DAILY Qty: 30 5RF omeprazole 20 mg capsule,delayed release(DR/EC) 20 mg PO DAILY Qty: 30 5RF fluticasone propionate 50 mcg/actuation spray,suspension 1 spray INTRANASAL DAILY PRN (Reason: Nasal Congestion) cetirizine 10 mg Tablet 10 mg PO DAILY mupirocin 2 % Ointment 1 applic TOPICAL TID Lactobacillus acidophilus [Acidophilus] Capsule 10 mg PO DAILY PRN (Reason: on abx) fluoxetine 20 mg Capsule 20 mg PO DAILY drospirenone-ethinyl estradiol [ZAINAB (28)] 3-0.02 mg Tablet 1 tab PO DAILY Discharge Orders: Discharge ED (Routine); Ordered 10/15/22 Ordered By: Aydee Schaefer Referrals: Sheridan Jennings FNP [Primary Care Provider] - Discharge Diet: As Directed Discharge Activity: Increase activity as tolerated Patient Instructions: Biliary Colic (ED), Gallstones (ED), Abdominal Pain (ED) Activity Restrictions/Additional Instructions: Follow-up with primary care as needed. You should be hearing from case management or the general surgeon to follow-up on your gallstones. In the meantime, avoid caffeine, chocolate, red sauce, fried fatty foods, lettuce to help with the biliary colic. Return to the ER for any new or worsening symptoms including, but not limited to, fever, vomiting, worsening abdominal pain. Coding Level of Care Code ED Escapement Maker for Lydia Noyola
[2022-10-15] MEDS: sodium chloride 0.9% 1,000 ML 999 ML IV (20:56)
--- NOTE | 2022-10-15 21:57 | PC.NURSE ---
TURNED OVER CARE TO NELLI RN AT [id number]
--- NOTE | 2022-10-16 08:28 | DCPLANNER ---
Addendum entered by Janet Patel 11/11/22 10:17: Patient had a follow up appointment scheduled with general surgery - patient did attend appointment. Addendum entered by Janet Patel 10/16/22 11:02: Patient has a follow up appointment scheduled for Thursday, November 10, 2022 at 8:[address] oJhns at general surgery. Original Note: manager sql had message to schedule a follow up appointment for patient with general surgery. manager sql sent patients information to the front office staff at general surgery. Patients information will be printed and reviewed. Clinic will call patient with appointment information.
== END 2022-10-15 22:20 | disposition home or self-care (01) ==
PROVIDERS: Emergency Provider Nurse Practitioner Family; PCP Nurse Practitioner Family
DX: K80.20 Calculus of gallbladder without cholecystitis without obstruction (principal); F17.210 Nicotine dependence, cigarettes, uncomplicated
CPT/HCPCS: 36415; 76705; 80053; 83690; 85025; 96361; 96374; 96375; 96376; 99284; J2270; J2405; J7030

== ENCOUNTER 2022-10-19 18:54 | Emergency (ER) | payer BC, SELFPAY ==
[2022-10-19 19:06] VITALS: BP 131/82; PULSE 96; RESP 18; TEMP 36.8; O2SAT 100; BMI 36.6
[2022-10-19 20:36] LABS: Basophils # 0.1 10^3/uL (0.0-0.1); Basophils % 0.5 %; Eosinophils # 0.2 10^3/uL (0.0-0.8); Eosinophils % 1.5 %; Hematocrit 39.3 % (37.0-47.0); Hemoglobin 11.7 g/dL (11.5-15.3); Lymphocytes # 1.8 10^3/uL (0.8-4.8); Lymphocytes % 12.4 %; Mean Corpuscular HGB Conc 29.8 g/dL (30.0-36.0); Mean Corpuscular Hemoglobin 23.7 pg (28.0-34.0); Mean Corpuscular Volume 79.7 fl (81-99); Mean Platelet Volume 9.4 fL (7.4-10.4); Monocytes % 7.3 %; Neutrophils # 11.11 10^3/uL (1.8-7.7); Neutrophils % 77.9 %; Nucleated Red Blood Cells % 0 %; Platelet Count 376 10^3/cmm (130-400); Red Blood Count 4.93 10^6/uL (4.1-5.3); Red Cell Distribution Width 14.2 % (12.1-15.1); White Blood Count 14.3 10^3/uL (4.0-10.0)
[2022-10-19 21:05] LABS: Alanine Aminotransferase 59 U/L (0-33); Alkaline Phosphatase 122 U/L (35-105); Aspartate Amino Transferase 139 U/L (0-32); Blood Urea Nitrogen 10 mg/dL (6-20); Calcium 8.9 mg/dL (8.5-10.5); Carbon Dioxide 17 mmol/L (22-29); Chloride 105 mmol/L (98-107); Globulin 2.9 g/dL (1.3-4.6); Glomerular Filtration Rate 83.7 mL/min (90-130); Glucose 110 mg/dL (65-115); Lipase 37 U/L (13-60); Osmolality Calculated 284 mOsm/kg (285-295); Sodium 137 mmol/L (136-145); Total Bilirubin 0.4 mg/dL (0.15-1.2); Total Protein 6.9 g/dL (6.6-8.7)
== END 2022-10-19 21:05 | disposition left against medical advice (07) ==
LOC: ER 18:59
PROVIDERS: Emergency Medicine; Emergency Provider Family Medicine; PCP Nurse Practitioner Family
DX: Z53.21 Procedure and treatment not carried out due to patient leaving prior to being seen by health care provider (principal)
CPT/HCPCS: 36415; 80053; 83690; 85025

== ENCOUNTER 2023-04-26 09:05 | Oncology outpatient (recurring) (ONCR) | payer BC, SELFPAY ==
[2023-04-08 11:59] LABS: Basophils % 0.2 %; Eosinophils # 0.1 10^3/uL (0.0-0.8); Eosinophils % 0.5 %; Hematocrit 34.2 % (36-47); Lymphocytes # 1.8 10^3/uL (0.8-4.8); Lymphocytes % 19.5 %; Mean Corpuscular HGB Conc 30.1 g/dL (30-55); Mean Corpuscular Hemoglobin 23.8 pg (27-33); Mean Platelet Volume 9.2 fL (7.4-10.4); Monocytes # 0.7 10^3/uL (0.2-0.9); Monocytes % 7.1 %; Neutrophils # 6.83 10^3/uL (1.8-7.7); Neutrophils % 72.2 %; Nucleated Red Blood Cells % 0 %; Platelet Count 302 10^3/cmm (157-399); Red Blood Count 4.33 10^6/uL (3.85-5.65); Red Cell Distribution Width 16.4 % (12.1-15.1); Reticulocyte % 1.6 % (0.5-2.0); White Blood Count 9.46 10^3/uL (3.29-11.43)
[2023-04-08 12:22] LABS: Alanine Aminotransferase 14 U/L (0-33); Alkaline Phosphatase 61 U/L (35-105); Anion Gap 14.4 (5-19); Aspartate Amino Transferase 16 U/L (0-32); Blood Urea Nitrogen 8 mg/dL (6-20); Calcium 8.8 mg/dL (8.5-10.5); Carbon Dioxide 22 mmol/L (22-29); Chloride 106 mmol/L (98-107); Free T4 Free Thyroxine 1.17 ng/dL (0.82-1.77); Globulin 2.4 g/dL (1.3-4.6); Glucose 90 mg/dL (65-115); Osmolality Calculated 284 mOsm/kg (285-295); Potassium 4.4 mmol/L (3.5-5.1); Sodium 138 mmol/L (136-145); Thyroid Stimulating Hormone 0.72 uIU/mL (0.27-4.20); Total Bilirubin 0.2 mg/dL (0.15-1.2); Total Protein 6.4 g/dL (6.6-8.7)
[2023-04-08 12:59] LABS: Ferritin 8 ng/mL (15-150); Iron 91 ug/dL (37-145); Percent Saturation 19.6 % (20-50); Total Iron Binding Capacity 462 mcg/dl; Unsaturated Iron Binding 371 ug/dL (112-347)
[2023-04-08 13:15] LABS: Folate Level > 20.0 ng/mL (4.8-37.3)
[2023-04-08 13:16] LABS: Vitamin B12 > 2000 pg/mL (232-1245)
[2023-04-12 21:59] LABS: Methylmalonic Acid 84 nmol/L (87-318)
[2023-04-26 09:25] VITALS: BP 121/80; PULSE 78; RESP 18; TEMP 37.2; O2SAT 99
[2023-04-26] MEDS: sodium chloride 0.9% 250 ML 75 ML IV (09:38)
[2023-04-26] MEDS: ferric carboxy (IVPB) 750 MG in sodium chloride 0.9% (100 ml) 100 ML 345 MG IV (09:39)
[2023-04-26 10:20] VITALS: BP 109/66; PULSE 71; RESP 18; TEMP 37.2; O2SAT 99
== END 2023-04-29 23:59 | disposition home or self-care (01) ==
PROVIDERS: Internal Medicine; PCP Nurse Practitioner Family; Visit Provider Radiology Radiation Oncology
DX: E61.1 Iron deficiency (principal)
CPT/HCPCS: 36415; 80053; 82607; 82728; 82746; 83540; 83550; 83921; 84439; 84443; 85025; 85045; 96365; J1439; J7050

== ENCOUNTER 2023-05-03 09:02 | Oncology outpatient (recurring) (ONCR) | payer BC, SELFPAY ==
[2023-05-03] MEDS: ferric carboxy (IVPB) 750 MG in sodium chloride 0.9% (100 ml) 100 ML 345 MG IV (10:14)
[2023-05-03 10:45] VITALS: BP 95/68; PULSE 74; RESP 18; TEMP 37.1; O2SAT 96
== END 2023-05-30 23:59 | disposition home or self-care (01) ==
PROVIDERS: PCP Nurse Practitioner Family; Visit Provider Radiology Radiation Oncology
DX: E61.1 Iron deficiency (principal)
CPT/HCPCS: 96365; J1439

== ENCOUNTER 2023-06-03 11:37 | Oncology outpatient (recurring) (ONCR) | payer BC, MEDICAID, SELFPAY ==
[2023-06-03 11:50] VITALS: BP 134/79; PULSE 85; RESP 16; TEMP 36.4; O2SAT 95
[2023-06-03 12:18] LABS: Basophils % 0.2 %; Eosinophils # 0.1 10^3/uL (0.0-0.8); Eosinophils % 1.1 %; Hematocrit 36.2 % (36-47); Lymphocytes # 1.7 10^3/uL (0.8-4.8); Lymphocytes % 19.3 %; Mean Corpuscular Hemoglobin 27.9 pg (27-33); Mean Platelet Volume 9.4 fL (7.4-10.4); Monocytes # 0.4 10^3/uL (0.2-0.9); Monocytes % 4.9 %; Neutrophils # 6.38 10^3/uL (1.8-7.7); Neutrophils % 73.5 %; Nucleated Red Blood Cells % 0 %; Platelet Count 187 10^3/cmm (157-399); Red Blood Count 4.16 10^6/uL (3.85-5.65); Red Cell Distribution Width 18.9 % (12.1-15.1); Reticulocyte % 1.6 % (0.5-2.0)
[2023-06-03 12:53] LABS: Alanine Aminotransferase 16 U/L (0-33); Albumin Level 3.5 g/dL (3.5-5.2); Alkaline Phosphatase 59 U/L (35-105); Anion Gap 14.6 (5-19); Aspartate Amino Transferase 19 U/L (0-32); Blood Urea Nitrogen 6 mg/dL (6-20); Calcium 8.4 mg/dL (8.5-10.5); Carbon Dioxide 21 mmol/L (22-29); Chloride 104 mmol/L (98-107); Ferritin 224 ng/mL (15-150); Globulin 2.5 g/dL (1.3-4.6); Glucose 121 mg/dL (65-115); Iron 96 ug/dL (37-145); Osmolality Calculated 281 mOsm/kg (285-295); Percent Saturation 34.1 % (20-50); Potassium 3.6 mmol/L (3.5-5.1); Sodium 136 mmol/L (136-145); Total Bilirubin 0.2 mg/dL (0.15-1.2); Total Iron Binding Capacity 281 mcg/dl; Unsaturated Iron Binding 185 ug/dL (112-347)
== END 2023-06-30 23:59 | disposition home or self-care (01) ==
PROVIDERS: Internal Medicine; PCP Nurse Practitioner Family; Visit Provider Nurse Practitioner Family
DX: E61.1 Iron deficiency (principal); Z34.90 Encounter for supervision of normal pregnancy, unspecified, unspecified trimester; Z79.899 Other long term (current) drug therapy
CPT/HCPCS: 36415; 80053; 82728; 83540; 83550; 85025; 85045

== ENCOUNTER 2023-08-10 10:26 | Oncology outpatient (recurring) (ONCR) | payer BC, MEDICAID, SELFPAY ==
[2023-08-10 10:59] LABS: Basophils % 0.4 %; Eosinophils # 0.1 10^3/uL (0.0-0.8); Eosinophils % 0.6 %; Hematocrit 36.7 % (36-47); Lymphocytes # 1.7 10^3/uL (0.8-4.8); Lymphocytes % 15.2 %; Mean Corpuscular HGB Conc 33.2 g/dL (30-55); Mean Corpuscular Volume 93.4 fl (85-98); Mean Platelet Volume 9.4 fL (7.4-10.4); Monocytes # 0.6 10^3/uL (0.2-0.9); Monocytes % 5.6 %; Neutrophils # 8.35 10^3/uL (1.8-7.7); Neutrophils % 75.1 %; Nucleated Red Blood Cells % 0 %; Platelet Count 184 10^3/cmm (157-399); Red Blood Count 3.93 10^6/uL (3.85-5.65); Red Cell Distribution Width 13.9 % (12.1-15.1); White Blood Count 11.12 10^3/uL (3.29-11.43)
[2023-08-10 11:42] LABS: Alanine Aminotransferase 11 U/L (0-33); Albumin Level 3.5 g/dL (3.5-5.2); Alkaline Phosphatase 63 U/L (35-105); Anion Gap 16.8 (5-19); Aspartate Amino Transferase 16 U/L (0-32); Blood Urea Nitrogen 5 mg/dL (6-20); Calcium 8.6 mg/dL (8.5-10.5); Carbon Dioxide 21 mmol/L (22-29); Chloride 103 mmol/L (98-107); Ferritin 108 ng/mL (15-150); Globulin 2.4 g/dL (1.3-4.6); Glucose 98 mg/dL (65-115); Iron 113 ug/dL (37-145); Osmolality Calculated 281 mOsm/kg (285-295); Percent Saturation 33.4 % (20-50); Potassium 3.8 mmol/L (3.5-5.1); Sodium 137 mmol/L (136-145); Total Bilirubin 0.2 mg/dL (0.15-1.2); Total Iron Binding Capacity 338 mcg/dl; Total Protein 5.9 g/dL (6.6-8.7); Unsaturated Iron Binding 225 ug/dL (112-347)
== END 2023-08-29 23:59 | disposition home or self-care (01) ==
PROVIDERS: PCP Nurse Practitioner Family; Visit Provider Nurse Practitioner Family
DX: E61.1 Iron deficiency (principal)
CPT/HCPCS: 36415; 80053; 82728; 83540; 83550; 85025

== ENCOUNTER 2023-09-29 09:51 | Oncology outpatient (recurring) (ONCR) | payer BC, MEDICAID, SELFPAY ==
[2023-09-29 10:17] LABS: Basophils % 0.3 %; Eosinophils # 0.1 10^3/uL (0.0-0.8); Eosinophils % 0.6 %; Hematocrit 38.5 % (36-47); Lymphocytes # 1.8 10^3/uL (0.8-4.8); Mean Corpuscular Hemoglobin 31.6 pg (27-33); Mean Platelet Volume 9.6 fL (7.4-10.4); Monocytes # 0.8 10^3/uL (0.2-0.9); Monocytes % 6.7 %; Neutrophils # 8.77 10^3/uL (1.8-7.7); Nucleated Red Blood Cells % 0 %; Platelet Count 172 10^3/cmm (157-399); Red Blood Count 4.14 10^6/uL (3.85-5.65); Red Cell Distribution Width 13.3 % (12.1-15.1); White Blood Count 11.69 10^3/uL (3.29-11.43)
[2023-09-29 10:36] LABS: Alanine Aminotransferase 10 U/L (0-33); Albumin Level 3.3 g/dL (3.5-5.2); Alkaline Phosphatase 88 U/L (35-105); Anion Gap 13.9 (5-19); Aspartate Amino Transferase 17 U/L (0-32); Blood Urea Nitrogen 5 mg/dL (6-20); Carbon Dioxide 21 mmol/L (22-29); Chloride 105 mmol/L (98-107); Ferritin 51 ng/mL (15-150); Globulin 2.3 g/dL (1.3-4.6); Glucose 91 mg/dL (65-115); Iron 120 ug/dL (37-145); Osmolality Calculated 279 mOsm/kg (285-295); Percent Saturation 31.1 % (20-50); Potassium 3.9 mmol/L (3.5-5.1); Sodium 136 mmol/L (136-145); Total Bilirubin 0.2 mg/dL (0.15-1.2); Total Iron Binding Capacity 385 mcg/dl; Total Protein 5.6 g/dL (6.6-8.7); Unsaturated Iron Binding 265 ug/dL (112-347)
== END 2023-10-29 23:59 | disposition home or self-care (01) ==
PROVIDERS: Internal Medicine; PCP Nurse Practitioner Family; Visit Provider Nurse Practitioner Family
DX: E61.1 Iron deficiency (principal)
CPT/HCPCS: 36415; 80053; 82728; 83540; 83550; 85025

== ENCOUNTER 2023-10-20 21:33 | Outpatient (CLI) | payer BC, MEDICAID, SELFPAY ==
[2023-10-20 21:33] VITALS: BMI 46.0
[2023-10-20 21:50] VITALS: BP 131/79; PULSE 82
[2023-10-20 22:11] VITALS: BP 128/76; PULSE 74
[2023-10-20 22:30] VITALS: BP 118/76; PULSE 71
[2023-10-20 22:52] VITALS: BP 121/62; PULSE 65
[2023-10-20 23:12] VITALS: BP 129/73; PULSE 63
== END 2023-10-20 23:23 | disposition home or self-care (01) ==
LOC: OPOB 21:44 → OBGYN 21:44
PROVIDERS: PCP Nurse Practitioner Family; Visit Provider Family Medicine
DX: O26.899 Other specified pregnancy related conditions, unspecified trimester (principal); Z3A.00 Weeks of gestation of pregnancy not specified
CPT/HCPCS: 59025; 99211

== ENCOUNTER 2023-10-23 18:35 | Inpatient (IN) | payer BC, MEDICAID, SELFPAY ==
[2023-10-23] VITALS (21 sets, daily range): BP systolic 104–157; BP diastolic 58–101; PULSE 67–111; RESP 16–18; TEMP 36.6–36.7; O2SAT 97–100; BMI 46.0
[2023-10-23 18:41] LABS: Basophils % 0.3 %; Eosinophils # 0.1 10^3/uL (0.0-0.8); Eosinophils % 0.4 %; Hematocrit 41.4 % (36-47); Lymphocytes # 1.8 10^3/uL (0.8-4.8); Lymphocytes % 14.1 %; Mean Corpuscular HGB Conc 33.3 g/dL (30-55); Mean Corpuscular Hemoglobin 31.1 pg (27-33); Mean Corpuscular Volume 93.2 fl (85-98); Monocytes # 0.8 10^3/uL (0.2-0.9); Monocytes % 6.1 %; Neutrophils # 9.77 10^3/uL (1.8-7.7); Neutrophils % 78.1 %; Nucleated Red Blood Cells % 0 %; Platelet Count 227 10^3/cmm (157-399); Red Blood Count 4.44 10^6/uL (3.85-5.65); White Blood Count 12.53 10^3/uL (3.29-11.43)
--- NOTE | 2023-10-23 19:30 | P.ANESASSM_ITS ---
Pre-Anesthetic Assessment Height/Weight: Height 1.65 m Weight 125.645 kg Temp Pulse Resp BP Pulse Ox O2 Del Method 98.0 F 69 16 142/97 97 Room Air 10/25/23 13:15 10/25/23 13:15 10/25/23 13:15 10/25/23 13:15 10/24/23 05:10 10/23/23 21:30 Operation Date: 10/23/23 19:45 Proposed Procedures p Section(Not Applicable) - Hilton Muller MD Operation Date: 10/24/23 19:45 Proposed Procedures p Section(Not Applicable) - Hilton Muller MD Familial anesthetic complications: none Was Beta Akash taken within 24 hours: N/A Was Clonidine taken within 24 hours: N/A Last intake: 5 pm Social No alcohol and No tobacco Exam alert, oriented x 3, clear to auscultation bilaterally and regular rate & rhythm Anesthetic Plan ASA status: 2E Anesthesia: Regional (specify below) Risk of > 500 ml blood loss (7ml/kg in children): No Medications/Allergies Home Medications Medication Instructions Recorded Confirmed Last Taken Type escitalopram oxalate 10 mg tablet 10 mg PO DAILY 10/20/23 10/24/23 10/24/23 History (Lexapro) docusate sodium 100 mg capsule 100 mg PO BID #30 caps 10/25/23 Unknown Rx hydrocodone 10 mg-acetaminophen 1 tab PO Q6H PRN Severe Pain #28 10/25/23 Unknown Rx 325 mg tablet tabs vits no.130-ferrous fum 1 tab PO DAILY #90 tabs 10/25/23 Unknown Rx 27 mg iron-folic acid 800 mcg tablet ( Vitamin) Allergies Allergy/AdvReac Type Severity Reaction Status Date / Time ibuprofen Allergy Mild Unknown Verified 10/20/23 23:08 azithromycin [From Zithromax] Allergy Unknown Verified 10/20/23 23:08 oxycodone Allergy ADR-Itching Verified 10/24/23 15:33 PFS Anesthesia Medical History Iron deficiency Seasonal allergies History of hidradenitis suppurativa Surgical History Hx of gastric bypass History of tonsillectomy Family History Mother Hypertension Cancer History of cervical cancer Father Hypertension Grandfather Cancer Maternal grandfather, colon cancer Grandfather Bone marrow disease Paternal grandfather, history of unknown bone marrow disorder Social History Smoking and tobacco/nicotine status: current every day tobacco/nicotine user e- cigarettes E-Cigarette Details: vaporizer device E-cig/vape details: 6 years Quit status (tobacco/nicotine): has quit using Year quit tobacco: 2016 Former quit date comment: smoked 10 years Alcohol intake: never Substance/Drug Use: never Female Reproductive History : 1 Data Anesthesia 10/24/23 07:20 Short CBC 10/24/23 Range/Units 07:20 WBC 13.32 H (3.29-11.43) 10^3/uL Hgb 11.20 L (11.27-16.99) g/dL Hct 33.7 L (36-47) % MCV 94.4 (85-98) fl Plt Count 148 L D (157-399) 10^3/cmm Blood Bank 10/23/23 18:20 Blood Type O Positive Rho(D) Type Rh positive Antibody Screen Negative Cardiac Studies: 2 No Data to Display
[2023-10-23] MEDS: lactated ringers 1,000 ML 999 ML IV (19:37)
--- NOTE | 2023-10-23 21:05 | PM.OP ---
Operative Report Date of procedure: October 23, 2023 Pre-op diagnosis: 32-year-old 1 at 40 weeks estimated gestational age with nonreassuring heart tones Post-op diagnosis: Status post low-transverse section Procedure done: Stat low-transverse section Specimens removed/disposition: 1. Male with a weight of 8 pounds 6 ounces and Apgars of 8 and 9 2. Placenta with a three-vessel cord delivered intact Surgeon: Hilton Muller MD Estimated blood loss (mL): 800 Complications: None Procedure: The patient was brought back to the operating room where a spinal was performed. After the spinal, the nurse was checking for heart tones and could not find them. As result we converted to a stat . Betadine was quickly rubbed over her belly prior to proceeding with section. A lower transverse skin incision was then made with a #10 blade. I then dissected down to the underlying subcutaneous tissue until arriving at the prerectal fascia. The fascia was then nicked with the scalpel bilaterally. The fascial incisions were then carried laterally with Aquino scissors. Attention was then turned to the superior aspect of the incision which was grasped with kochers and tented up away from the underlying rectus abdominis muscles. The muscles were then dissected away from the fascia manually, and later with Aquino scissors. Attention was then turned to the inferior aspect of the incision, and the fascia was dissected away from the underlying muscle in similar fashion. The rectus abdominis muscles were then spread manually. The peritoneum was entered manually. Excellent visualization of the uterus was noted. A lower transverse uterine incision was then made with a #10 blade. Upon arriving at the intrauterine cavity, the uterine incision was then extended manually. The was noted to be in vertex position. The baby was delivered without difficulty and handed to Dr. Jennings and nurses who are waiting. Meconium was noted. There was a nuchal cord x 1. The cord was cut and clamped. The placenta was removed intact. The uterus was externalized. The intrauterine cavity was cleansed of any remaining debris. The uterine incision was reapproximated in 2 layers. The first layer was performed with 0 Vicryl in a running locked stitch. The second layer was an imbricating stitch also using 0 Vicryl. The uterus was replaced into the abdomen. The peritoneum was then irrigated with warm saline. I reexamined the uterine incision and found it to be hemostatic. The rectus abdominis muscles were then reapproximated using 0 Vicryl in a running stitch. The fascia was then reapproximated using 0 Vicryl in running stitch. The subcutaneous tissue was reapproximated with 0 Vicryl in a running stitch. The skin was reapproximated using a running subcuticular stitch with 4-0 Vicryl. A sterile dressing was placed. All counts were correct x2. Both the mother and baby were in stable condition.
--- NOTE | 2023-10-23 21:12 | PM.OBGYHP ---
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 Upon arrival she was noted to have thick green meconium and obvious rupture membranes. She was noted be 2 cm dilated about 60% effaced. Without adding anything to augment her labor, her baby began having late decelerations and periods of minimal variability. Her contractions were inconsistent and were not painful. Since the baby was already showing signs of distress, and the patient had not even began to have the labor, the decision was made to proceed with a section. The patient's had otherwise been unremarkable. Her blood type is O+. Her antibody screen is negative. She passed her glucose screen. She is rubella nonimmune. GBS negative. The remainder of her infectious disease profile was within normal limits. Present Details : 1 Para: 0 Labs Rubella: Immune RPR: Negative GBS: Negative Review of Systems General: Reports: 10 or more systems reviewed and unremarkable except in HPI and below Const: Reports: fatigue; Denies: fever(s) Eyes: Denies: change in vision Card: Denies: chest pain Musc: Reports: back pain Willis/Lymph: Denies: easy bruising Medications/Allergies Home Medications Medication Instructions Recorded Confirmed Last Taken Type escitalopram oxalate 10 mg tablet 10 mg PO DAILY 10/20/23 10/24/23 10/24/23 History (Lexapro) docusate sodium 100 mg capsule 100 mg PO BID #30 caps 10/25/23 Unknown Rx hydrocodone 10 mg-acetaminophen 1 tab PO Q6H PRN Severe Pain #28 10/25/23 Unknown Rx 325 mg tablet tabs vits no.130-ferrous fum 1 tab PO DAILY #90 tabs 10/25/23 Unknown Rx 27 mg iron-folic acid 800 mcg tablet ( Vitamin) Allergies Allergy/AdvReac Type Severity Reaction Status Date / Time ibuprofen Allergy Mild Unknown Verified 10/20/23 23:08 azithromycin [From Zithromax] Allergy Unknown Verified 10/20/23 23:08 oxycodone Allergy ADR-Itching Verified 10/24/23 15:33 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 PFSH: Medical History Iron deficiency Seasonal allergies History of hidradenitis suppurativa Surgical History Hx of gastric bypass History of tonsillectomy Family History Mother Hypertension Cancer History of cervical cancer Father Hypertension Grandfather Cancer Maternal grandfather, colon cancer Grandfather Bone marrow disease Paternal grandfather, history of unknown bone marrow disorder Social History Smoking and tobacco/nicotine status: current every day tobacco/nicotine user e-cigarettes E-Cigarette Details: vaporizer device E-cig/vape details: 6 years Quit status (tobacco/nicotine): has quit using Year quit tobacco: 2015 Former quit date comment: smoked 10 years Alcohol intake: never Substance/Drug Use: never Vitals/I&O/Wt Last Vital Signs Pulse 77 10/23/23 19:33 BP 146/95 10/23/23 19:33 Pulse Ox 97 10/23/23 18:22 O2 Del Method Room Air 10/23/23 18:29 Weight last 48 hrs Weight 277 lb Physical Exam Const: COMMON NORMALS: patient oriented x3 and alert HENMT: COMMON NORMALS: moist oral mucous membranes HEAD & SCALP: normal to inspection Chest: COMMONS NORMALS: normal inspection of the chest Resp: COMMON NORMALS: clear to auscultation bilaterally AUSCULTATION: clear to auscultation bilaterally Cardio: COMMON NORMALS: regular rate and regular rhythm RATE: regular rate RHYTHM: regular rhythm GI: INSPECTION: Yes normal to inspection and Yes other (Gravid) Extremity: COMMON NORMALS: normal to inspection GENERAL: Yes edema (Trace) Neuro: COMMON NORMALS: patient oriented x3, moves all extremities and no sensory deficits noted SENSORIUM/ORIENTATION: Yes alert Psych: COMMON NORMALS: mental status grossly normal Skin: COMMON NORMALS: no rashes or lesions noted GENERAL SKIN EXAM: no rashes or lesions noted Data 10/24/23 07:20 Results Labs OB ([facility]): Obstetrics US 07/19/23 Blood Type O Positive 10/23/23 Antibody Screen Negative 10/23/23 Hct 33.7 % (36-47) L 10/24/23 Hgb 11.20 g/dL (11.27-16.99) L 10/24/23 Rho(D) Type Rh positive 10/23/23 Plt Count 148 10^3/cmm (157-399) L 10/24/23 TSH 0.72 uIU/mL (0.27-4.20) 04/08/23 Free T4 1.17 ng/dL (0.82-1.77) 04/08/23 A&P Assessment and plan (1) 40 weeks gestation of : (2) Non-reassuring heart tones complicating , antepartum: Proceed with a section. I discussed the risks with the patient and her including the risks of bleeding, infection, and damage intra-abdominal organs. They have no further questions and wished to proceed. Attestations Medical Necessity Statement*: Routine and post care anticipated. Coding Level of Care Code Acute Code for Chg Fwd Diagnoses 40 weeks gestation of Z3A.40 Non-reassuring heart tones complicating , antepartum O36.8390
--- NOTE | 2023-10-23 21:30 | ANE.PACU2 ---
Inpatient post-anesthesia follow up: Airway intact: Yes Vital signs: Temperature 98.0 F Pulse Rate 69 Respiratory Rate 16 Blood Pressure 142/97 Pulse Oximetry 97 Oxygen Delivery Me thod Room Air Oxygen Flow Rate Fraction of Inspir ed Oxygen Hydration adequate: Yes Nausea and vomiting: No Pain level: 1 Mental status: Baseline
[2023-10-23] MEDS: HYDROcodone-acetaminophen 5-325 mg Tablet PO (22:44)
--- NOTE | 2023-10-23 23:44 | PC.NURSE ---
patient in pacu with this RN
[2023-10-23] MEDS: dextrose 5%-lactated ringers 1,000 ML 125 ML IV (23:58)
[2023-10-24] VITALS (34 sets, daily range): BP systolic 117–165; BP diastolic 60–97; PULSE 64–109; RESP 14–18; O2SAT 95–98
[2023-10-24] MEDS: oxyCODONE-APAP 5-325 mg Tablet PO ×2 (04:42→11:48)
[2023-10-24] MEDS: lactated ringers 1,000 ML 999 ML IV (04:45)
--- NOTE | 2023-10-24 07:24 | PM.OP ---
Operative Report Date of procedure: October 24, 2023 Pre-op diagnosis: 32-year-old female status post low transverse section with persistent incisional bleeding Post-op diagnosis: Same Procedure done: Review of incision including cautery subcutaneous bleeding vessels. Surgeon: Hilton Muller MD Estimated blood loss (mL): 10 Brief History: Post , the nurse noted that the patient's dressings were becoming saturated. Pressure dressing was placed x 2. Despite this there continued to be bleeding through the incision. As result the decision was made to have the patient return to the OR. Procedure: The patient was brought back to the OR where the incision was cleansed with Betadine. The subcuticular sutures were then cut and the incision was opened. The patient was noted to have a briskly bleeding small vessel on the inferior aspect of the incision on the patient's left side. He responded well to cautery. I also cauterized several other areas with minimal bleeding. We then irrigated the area. After waiting for several minutes no further bleeding was noted. As result I used brina to reapproximate the incision without incident. Anesthesia was on standby but was not needed.
[2023-10-24 07:30] LABS: Hematocrit 33.7 % (36-47); Mean Corpuscular HGB Conc 33.2 g/dL (30-55); Mean Corpuscular Hemoglobin 31.4 pg (27-33); Mean Corpuscular Volume 94.4 fl (85-98); Mean Platelet Volume 9.6 fL (7.4-10.4); Platelet Count 148 10^3/cmm (157-399); Red Blood Count 3.57 10^6/uL (3.85-5.65); Red Cell Distribution Width 12.8 % (12.1-15.1); White Blood Count 13.32 10^3/uL (3.29-11.43)
--- NOTE | 2023-10-24 07:38 | P.PN_ITS ---
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 She has been passing gas. Her urine output has been marginal. She has received 2 boluses. Her vitals have otherwise been within normal limits. Labor: Station: -5 Amniotic Membrane Status: Ruptured Monitor Mode: External Contraction Pattern: Regular Vitals/I&O/Wt Last Vital Signs Temp 97.8 F 10/23/23 21:30 Pulse 73 10/24/23 06:08 Resp 16 10/24/23 04:42 BP 140/88 10/24/23 06:08 Pulse Ox 97 10/24/23 05:10 O2 Del Method Room Air 10/23/23 21:30 10/23/23 10/24/23 10/24/23 22:59 06:59 14:59 Intake Total 1800 / 1800 Output Total 55 / 55 1155 / 1210 Balance -55 / -55 645 / 590 Weight last 48 hrs Weight 277 lb Physical Exam 2 Narrative: She is in no acute distress Lungs are clear auscultation bilaterally Her heart has a regular rate and rhythm Her fundus is below the umbilicus and firm After surgery, her incision is clean dry and intact. Her extremities have trace edema Urinary Catheter Management: Montilla: Cath Placed During This Visit: yes Reason for Continuing Indwelling Catheter: Other Urinary Catheter Date of Insertion: 10/24/23 Urinary Catheter Time of Insertion: 20:04 Data 10/24/23 07:20 A&P Assessment and plan (1) Postoperative bleeding from incision: The bleeding was easily controlled. The patient appears to be doing well now. There is no current bleeding. (2) 40 weeks gestation of : (3) Status post delivery: I anticipate routine care. We will continue to monitor incision for bleeding. Attestations 2 Medical Necessity Statement*: Routine post care Coding Level of Care Code Acute Code for Chg Fwd Diagnoses Postoperative bleeding from incision 40 weeks gestation of Z3A.40 Status post delivery Z98.891
--- NOTE | 2023-10-24 07:40 | PC.NURSE ---
Dr. Muller arrived to the floor at 0550 to assess bleeding from surgical site. At 0600 Dr. Muller request to go to the OR for repair of bleeding at surgical site. Anesthesia called to the floor at 0601. Patient taken to OR at 0620. Dr. Muller administered local anesthesia and repaired surgical cite. Patient did not require general anesthesia. Patient transferred to bed at 0705 and taken to OB 8. Anesthesia states PACU not required due to no IV sedation required.
[2023-10-24] MEDS: PRENATAL VIT NO.130/IRON/FOLIC 1 EACH TABLET PO (08:35)
[2023-10-24] MEDS: HYDROcodone-acetaminophen 5-325 mg Tablet PO ×4 (08:35→23:23)
[2023-10-24] MEDS: diphenhydrAMINE 50 mg/mL SDV 1mL 25 MG IVP ×2 (12:49→17:12)
[2023-10-24] MEDS: docusate sodium 100 mg Capsule PO (19:34)
[2023-10-25] MEDS: HYDROcodone-acetaminophen 5-325 mg Tablet PO (03:31)
[2023-10-25 04:03] VITALS: BP 115/58; PULSE 56
[2023-10-25] MEDS: HYDROcodone-acetaminophen 10-325 mg Tablet 1 TAB PO (05:38)
[2023-10-25 08:00] VITALS: RESP 16; TEMP 36.9
[2023-10-25] MEDS: PRENATAL VIT NO.130/IRON/FOLIC 1 EACH TABLET PO (08:00)
[2023-10-25 08:03] VITALS: BP 136/90; PULSE 75
--- NOTE | 2023-10-25 09:44 | P.DS_ITS ---
Discharge Providers PRODUCTION ANALYST Date of Admission: 10/23/23 18:35 Date of Discharge: 10/25/23 Attending Provider at Admission: Hilton Muller MD Attending Provider at Discharge: Hilton Muller MD Primary Care Provider: BALA Echeverria Diagnoses at Discharge Discharge Diagnosis (1) 40 weeks gestation of : Status: Acute (2) Non-reassuring heart tones complicating , antepartum: Status: Acute Reason for Visit Reason for Visit: Poss ROM, Ctx Hospital Course Hospital Course The patient presented to the hospital with spontaneous rupture membranes. She was noted to have meconium. Her baby began having late decelerations that then progressed into minimal variability. As result a section was called and performed. The was unremarkable. Postoperatively, the patient began having and incisional bleeding. She was brought back to the OR and found to have a superficial bleed that was repaired with cautery. Maria D were then placed and she she had no further complications. She passed gas within 12 hours of surgery. Her diet was advanced without difficulty. Initially her urine output was lower than average, but she began to diurese on her first day postsurgery. She is allergic to ibuprofen, and her pain was little more difficult to control as result. We increased her pain medicines to hydrocodone/acetaminophen 10/325. With that combination she did better. Information Peripartum Data: Infant Delivery Method: Physical Exam Narrative: She is in no acute distress Lungs are clear auscultation bilaterally Her heart has a regular rate and rhythm Her fundus is below the umbilicus and firm Her dressing is clean, dry and intact Her extremities have trace edema Urinary Catheter Management: Montilla: Cath Placed During This Visit: yes, but has since been removed by the nurse Reason for Continuing Indwelling Catheter: Decision to DC Catheter Urinary Catheter Date of Insertion: 10/24/23 Urinary Catheter Time of Insertion: 20:04 Date Urinary Catheter Removed: 10/24/23 Time Urinary Catheter Discontinued: 12:00 Discharge Data Studies Completed and Pending Laboratory Results WBC 13.32 10^3/uL (3.29-11.43) H 10/24/23 07:20 RBC 3.57 10^6/uL (3.85-5.65) L 10/24/23 07:20 Hgb 11.20 g/dL (11.27-16.99) L 10/24/23 07:20 Hct 33.7 % (36-47) L 10/24/23 07:20 MCV 94.4 fl (85-98) 10/24/23 07:20 MCH 31.4 pg (27-33) 10/24/23 07:20 MCHC 33.2 g/dL (30-55) 10/24/23 07:20 RDW 12.8 % (12.1-15.1) 10/24/23 07:20 Plt Count 148 10^3/cmm (157-399) L D 10/24/23 07:20 MPV 9.6 fL (7.4-10.4) 10/24/23 07:20 Neut % (Auto) 78.1 % 10/23/23 18:20 Lymph % (Auto) 14.1 % 10/23/23 18:20 [place] % (Auto) 6.1 % 10/23/23 18:20 Eos % (Auto) 0.4 % 10/23/23 18:20 Baso % (Auto) 0.3 % 10/23/23 18:20 Neut # (Auto) 9.77 10^3/uL (1.8-7.7) H 10/23/23 18:20 Lymph # (Auto) 1.8 10^3/uL (0.8-4.8) 10/23/23 18:20 [place] # (Auto) 0.8 10^3/uL (0.2-0.9) 10/23/23 18:20 Eos # (Auto) 0.1 10^3/uL (0.0-0.8) 10/23/23 18:20 Baso # (Auto) 0.0 10^3/uL (0.0-0.1) 10/23/23 18:20 Nucleated RBC % (auto) 0 % 10/23/23 18:20 Nucleated RBCs # 0.0 /100WBC 10/23/23 18:20 Blood Type O Positive 10/23/23 18:20 Rho(D) Type Rh positive 10/23/23 18:20 Antibody Screen Negative 10/23/23 18:20 Vitals Last Vital Signs Temp 97.8 F 10/23/23 21:30 Pulse 75 10/25/23 08:03 Resp 18 10/24/23 11:48 BP 136/90 10/25/23 08:03 Pulse Ox 97 10/24/23 05:10 O2 Del Method Room Air 10/23/23 21:30 Results Labs OB ([facility]): Obstetrics US 07/19/23 Blood Type O Positive 10/23/23 Antibody Screen Negative 10/23/23 Hct 33.7 % (36-47) L 10/24/23 Hgb 11.20 g/dL (11.27-16.99) L 10/24/23 Rho(D) Type Rh positive 10/23/23 Plt Count 148 10^3/cmm (157-399) L 10/24/23 TSH 0.72 uIU/mL (0.27-4.20) 04/08/23 Free T4 1.17 ng/dL (0.82-1.77) 04/08/23 Discharge Plan Discharge Patient Disposition: Home Condition: Stable Prescriptions: New docusate sodium 100 mg Capsule 100 mg PO BID Qty: 30 0RF hydrocodone-acetaminophen 10-325 mg Tablet 1 tab PO Q6H PRN (Reason: Severe Pain) Qty: 28 0RF Vitamin 27 mg iron- 800 mcg Tablet 1 tab PO DAILY Qty: 90 2RF Continued escitalopram oxalate [Lexapro] 10 mg Tablet 10 mg PO DAILY Discontinued buspirone 10 mg tablet 10 mg PO TID omeprazole 20 mg capsule,delayed release(DR/EC) 20 mg PO DAILY ferrous gluconate 324 mg (37.5 mg iron) tablet 324 mg PO DAILY montelukast 10 mg tablet 10 mg PO DAILY Qty: 30 5RF cetirizine 10 mg Tablet 10 mg PO DAILY Discharge Orders: Discharge Order (Routine); Ordered 10/25/23 Ordered By: Hilton Mluler Referrals: Hilton Muller MD [Physician] - 10/29/23 Discharge Diet: Usual diet Discharge Activity: Limit activity as instructed Patient Instructions: Depression (DC), Opioid Safety (DC), Preeclampsia and Eclampsia After Delivery (GEN), Hemorrhage (DC), OB - Yohana/Shazia, OB Discharge Report, OB Food/Drug Interaction Guide, OB Care at Home, Opioid Safety, Abnormal Bleeding Discharge Attestations PRODUCTION ANALYST Time Spent in Discharge Care*: less than 30 min Coding Level of Care Code Acute Code for Chg Fwd Diagnoses 40 weeks gestation of Z3A.40 Non-reassuring heart tones complicating , antepartum O36.8390
[2023-10-25] MEDS: HYDROcodone-acetaminophen 10-325 mg Tablet 2 TAB PO ×2 (09:47→13:17)
[2023-10-25 13:01] VITALS: BP 142/97; PULSE 69
[2023-10-25 13:15] VITALS: BP 142/97; PULSE 69; RESP 16; TEMP 36.7
== END 2023-10-25 13:15 | disposition home or self-care (01) | DRG 787 ==
LOC: OPOB 10-24 10:29 → OBGYN 10-24 10:30
PROVIDERS: Admitting Provider Family Medicine; PCP Nurse Practitioner Family; Visit Provider Family Medicine
PROC: 10D00Z1 Extraction of Products of Conception, Low, Open Approach (ICD-10-PCS; CPT 59514; principal; 2023-10-23 19:45)
DX: O76 Abnormality in fetal heart rate and rhythm complicating labor and delivery (principal); L76.22 Postprocedural hemorrhage of skin and subcutaneous tissue following other procedure; O77.0 Labor and delivery complicated by meconium in amniotic fluid; O99.334 Smoking (tobacco) complicating childbirth; Z3A.40 40 weeks gestation of pregnancy; Z37.0 Single live birth
CPT/HCPCS: 36416; 51702; 59025; 59409; 83986; 85025; 85027; 86850; 86900; 96374; 96376; 98960; 99211; J1200; J1885; J2274; J7120; J7121

== ENCOUNTER 2024-01-11 12:27 | Oncology outpatient (recurring) (ONCR) | payer BC, MEDICAID, SELFPAY ==
[2024-01-11 12:55] LABS: Basophils % 0.5 %; Eosinophils # 0.1 10^3/uL (0.0-0.8); Eosinophils % 1.2 %; Hematocrit 41.6 % (36-47); Lymphocytes # 2.1 10^3/uL (0.8-4.8); Lymphocytes % 23.8 %; Mean Corpuscular HGB Conc 31.5 g/dL (30-55); Mean Corpuscular Hemoglobin 29.2 pg (27-33); Mean Corpuscular Volume 92.7 fl (85-98); Mean Platelet Volume 9.3 fL (7.4-10.4); Monocytes # 0.6 10^3/uL (0.2-0.9); Monocytes % 6.4 %; Neutrophils # 5.99 10^3/uL (1.8-7.7); Neutrophils % 67.8 %; Nucleated Red Blood Cells % 0 %; Platelet Count 265 10^3/cmm (157-399); Red Blood Count 4.49 10^6/uL (3.85-5.65); White Blood Count 8.84 10^3/uL (3.29-11.43)
[2024-01-11 13:12] LABS: Alanine Aminotransferase 14 U/L (0-33); Albumin Level 4.1 g/dL (3.5-5.2); Alkaline Phosphatase 67 U/L (35-105); Anion Gap 14.6 (5-19); Aspartate Amino Transferase 21 U/L (0-32); Blood Urea Nitrogen 12 mg/dL (6-20); Calcium 8.9 mg/dL (8.5-10.5); Carbon Dioxide 26 mmol/L (22-29); Chloride 103 mmol/L (98-107); Ferritin 44 ng/mL (15-150); Globulin 2.9 g/dL (1.3-4.6); Glomerular Filtration Rate 82.6 mL/min (90-130); Glucose 114 mg/dL (65-115); Iron 98 ug/dL (37-145); Osmolality Calculated 289 mOsm/kg (285-295); Percent Saturation 25.6 % (20-50); Potassium 4.6 mmol/L (3.5-5.1); Sodium 139 mmol/L (136-145); Total Bilirubin 0.2 mg/dL (0.15-1.2); Total Iron Binding Capacity 382 mcg/dl; Unsaturated Iron Binding 284 ug/dL (112-347)
== END 2024-01-29 23:59 | disposition home or self-care (01) ==
PROVIDERS: PCP Nurse Practitioner Family; Visit Provider Nurse Practitioner Family
DX: E61.1 Iron deficiency (principal)
CPT/HCPCS: 36415; 80053; 82728; 83540; 83550; 85025

== ENCOUNTER 2024-05-03 11:26 | Oncology outpatient (recurring) (ONCR) | payer BC, MEDICAID, SELFPAY ==
[2024-05-03 12:01] LABS: Basophils # 0.1 10^3/uL (0.0-0.1); Basophils % 0.7 %; Eosinophils # 0.1 10^3/uL (0.0-0.8); Eosinophils % 1.5 %; Hematocrit 41.5 % (36-47); Lymphocytes % 29.1 %; Mean Corpuscular HGB Conc 32.5 g/dL (30-55); Mean Corpuscular Hemoglobin 29.3 pg (27-33); Mean Corpuscular Volume 90.2 fl (85-98); Mean Platelet Volume 9.2 fL (7.4-10.4); Monocytes # 0.5 10^3/uL (0.2-0.9); Monocytes % 7.3 %; Neutrophils # 4.12 10^3/uL (1.8-7.7); Neutrophils % 61.1 %; Nucleated Red Blood Cells % 0 %; Platelet Count 280 10^3/cmm (157-399); Red Cell Distribution Width 12.2 % (12.1-15.1); White Blood Count 6.74 10^3/uL (3.29-11.43)
[2024-05-03 12:23] LABS: Alanine Aminotransferase 15 U/L (0-33); Albumin Level 3.9 g/dL (3.5-5.2); Alkaline Phosphatase 58 U/L (35-105); Aspartate Amino Transferase 16 U/L (0-32); Blood Urea Nitrogen 8 mg/dL (6-20); Calcium 8.8 mg/dL (8.5-10.5); Carbon Dioxide 23 mmol/L (22-29); Chloride 103 mmol/L (98-107); Ferritin 23 ng/mL (15-150); Globulin 2.9 g/dL (1.3-4.6); Glomerular Filtration Rate 96.4 mL/min (90-130); Glucose 69 mg/dL (65-115); Iron 90 ug/dL (37-145); Osmolality Calculated 279 mOsm/kg (285-295); Percent Saturation 22.7 % (20-50); Sodium 136 mmol/L (136-145); Total Bilirubin 0.2 mg/dL (0.15-1.2); Total Iron Binding Capacity 395 mcg/dl; Total Protein 6.8 g/dL (6.6-8.7); Unsaturated Iron Binding 305 ug/dL (112-347)
== END 2024-05-30 23:59 | disposition home or self-care (01) ==
PROVIDERS: Nurse Practitioner Family; PCP Nurse Practitioner Family; Visit Provider Nurse Practitioner Family
DX: E61.1 Iron deficiency (principal)
CPT/HCPCS: 36415; 80053; 82728; 83540; 83550; 85025

== ENCOUNTER 2024-08-02 13:13 | Oncology outpatient (recurring) (ONCR) | payer BC, MEDICAID, SELFPAY ==
[2024-08-02 14:08] LABS: Alanine Aminotransferase 9 U/L (0-33); Albumin Level 3.9 g/dL (3.5-5.2); Alkaline Phosphatase 74 U/L (35-105); Anion Gap 13.8 (5-19); Aspartate Amino Transferase 14 U/L (0-32); Blood Urea Nitrogen 10 mg/dL (6-20); Calcium 8.8 mg/dL (8.5-10.5); Carbon Dioxide 22 mmol/L (22-29); Chloride 108 mmol/L (98-107); Ferritin 17 ng/mL (15-150); Globulin 2.8 g/dL (1.3-4.6); Glomerular Filtration Rate 96.4 mL/min (90-130); Glucose 110 mg/dL (65-115); Iron 63 ug/dL (37-145); Osmolality Calculated 290 mOsm/kg (285-295); Percent Saturation 14.3 % (20-50); Potassium 3.8 mmol/L (3.5-5.1); Sodium 140 mmol/L (136-145); Total Bilirubin 0.2 mg/dL (0.15-1.2); Total Iron Binding Capacity 440 mcg/dl; Total Protein 6.7 g/dL (6.6-8.7); Unsaturated Iron Binding 377 ug/dL (112-347)
[2024-08-02 14:23] LABS: Basophils # 0.1 10^3/uL (0.0-0.1); Basophils % 0.6 %; Eosinophils # 0.1 10^3/uL (0.0-0.8); Eosinophils % 1.3 %; Hematocrit 41.9 % (36-47); Lymphocytes # 1.9 10^3/uL (0.8-4.8); Lymphocytes % 21.4 %; Mean Corpuscular Hemoglobin 28.1 pg (27-33); Mean Corpuscular Volume 87.8 fl (85-98); Mean Platelet Volume 9.3 fL (7.4-10.4); Monocytes # 0.6 10^3/uL (0.2-0.9); Monocytes % 7.1 %; Neutrophils # 6.17 10^3/uL (1.8-7.7); Neutrophils % 69.3 %; Nucleated Red Blood Cells % 0 %; Platelet Count 296 10^3/cmm (157-399); Red Blood Count 4.77 10^6/uL (3.85-5.65); Red Cell Distribution Width 12.1 % (12.1-15.1); White Blood Count 8.91 10^3/uL (3.29-11.43)
== END 2024-08-28 23:59 | disposition home or self-care (01) ==
PROVIDERS: Nurse Practitioner Family; PCP Nurse Practitioner Family; Visit Provider Internal Medicine
DX: E61.1 Iron deficiency (principal); Z72.0 Tobacco use
CPT/HCPCS: 36415; 80053; 82728; 83540; 83550; 85025